=== PATIENT | male | born 1955 | race Caucasian/White ===

== ENCOUNTER 2022-05-12 14:28 | Emergency (ER) | payer BC, SELFPAY ==
[2022-05-12 14:30] VITALS: BP 126/63; PULSE 106; RESP 20; TEMP 36.6; O2SAT 93; BMI 29.9
--- NOTE | 2022-05-12 15:09 | EDS_ITS ---
HPI History of Present Illness Chief Complaint: Substance Abuse Informant: patient Narrative Narrative: Patient presents with daughter requesting admission for detox from alcohol. He has been working with 180. He states he was sober for a while but is been drink ing heavily again over the last 6 weeks. As I enter the room he is reviewing the rules for the detox program. 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 [facility] Medical History Alcohol abuse COPD (chronic obstructive pulmonary disease) History of DVT (deep vein thrombosis) Tobacco abuse Home Medications apixaban 5 mg tablet (Eliquis) 5 mg PO BID 03/17/15 [History Last Taken Unknown] bupropion HCl 300 mg 24 hr tablet, extended release 300 mg PO DAILY 03/17/15 [History Last Taken Unknown] guaifenesin 600 mg tablet, extended release 12 hr (Mucus Relief ER) 600 mg PO BID 03/17/15 [History Last Taken Unknown] hydrocodone-acetaminophen 5-325mg 5mg-325mg 1 tab PO Q6H PRN PRN Pain 03/17/15 [History Last Taken Unknown] lorazepam 0.5 mg tablet 0.5 mg PO BID PRN PRN Anxiety 03/17/15 [History Last Taken Unknown] pantoprazole 40 mg tablet,delayed release 40 mg PO DAILY 03/17/15 [History Last Taken Unknown] tiotropium bromide 18 mcg capsule with inhalation device (Spiriva with HandiHaler) 1 puff inhalation DAILY 03/17/15 [History Last Taken Unknown] Allergy/AdvReac Type Severity Reaction Status Date / Time POLYMER Allergy NEEDS Uncoded 05/12/22 14:29 FOLLOW-UP Social History Smoking Status: Current every day smoker ROS ROS ED Constitutional Constitutional ED: Denies chills or fever(s) Eyes Eyes: Denies change in vision or discharge from eye(s) ENT ENT ED: Denies discharge from eye(s), rhinorrhea or sore throat Cardiovascular Cardiovascular: Denies chest pain or palpitations Respiratory/Chest Respiratory/Chest: Denies cough or dyspnea Gastrointestinal Gastrointestinal: Denies abdominal pain, diarrhea, nausea or vomiting Genitourinary Genitourinary ED: Denies dysuria Musculoskeletal Musculoskeletal: Denies back pain or extremity pain Integumentary Denies Abrasions or rash Neurologic Neurologic: Denies headache(s) or weakness Psychiatric Psychiatric: Reports anxiety Allergic/Immunologic Allergic/Immunologic ED: Denies lip swelling or urticaria EXAM Physical Exam Narrative Exam Narrative: Patient sitting on side of bed no acute distress. Const Vital Signs: 05/12/22 14:30 Temperature 97.9 F Temperature Source Temporal Pulse Rate 106 H Respiratory Rate 20 H Blood Pressure 126/63 H Blood Pressure Mean 84 Pulse Ox 93 Oxygen Delivery Method Nasal Cannula Oxygen Flow Rate (L/min) 3 Positive well nourished and well developed General Appearance ED: well developed HEENT Reports moist mucous membranes Chest Wall inspection of chest normal and palpation of chest normal Resp normal respiratory effort and clear to auscultation bilaterally Cardio regular rate and regular rhythm GI soft to palpation and non-tender Neuro oriented x3 and no sensory deficits noted Motor Exam: strength 5/5 throughout Psych mental status grossly normal [facility] Treatment and Re-Evaluation Narrative: I spoke with the hospitalist who agreed to make an exception and allow the patient to have his cell phone if it got him the help he needed. I went back and presented this to the patient. He states that this time he just does not think he can do it and needs to go home. He feels that he can detox on his own. He was advised that he can return at any point if he changes his mind and we are happy to help him. Daughter is at bedside and present for the entire discussion. Discharge Plan Triage Chief Complaint: Substance Abuse ED Provider: Ebony Duffy Dx/Rx/DC Orders Clinical Impression: ETOH abuse Instructions: ED Alcohol Abuse Prescriptions: No Action hydrocodone-acetaminophen 1 TABLET tablet 1 tab PO Q6H PRN PRN (Reason: Pain) lorazepam 0.5 MG tablet 0.5 mg PO BID PRN PRN (Reason: Anxiety) pantoprazole 40 MG tablet 40 mg PO DAILY bupropion HCl 300 MG Tablet.Xl 300 mg PO DAILY tiotropium bromide [Spiriva with HandiHaler] 1 PUFF inhaler 1 puff inhalation DAILY apixaban [Eliquis] 5 MG tablet 5 mg PO BID guaifenesin [Mucus Relief ER] 600 MG tablet 600 mg PO BID Primary Care Provider: [facility] Doctor,Out of Referrals: [facility] [STAFF PHYSICIAN] - As soon as possible [facility] Doctor,Out of [Primary Care Provider] - Disposition Disposition: Home, Self Care
--- NOTE | 2022-05-12 15:23 | ED.RN ---
PT CHOSE NOT TO PROCEED WITH DETOX. PT LEFT AMA WITH DAUGHTER, DR. BRISCOE AWARE. LEFT WITHOUT SEEING REGISTRATION.
[2022-05-12 15:30] VITALS: RESP 20
== END 2022-05-12 15:34 | disposition home or self-care (01) ==
LOC: ED 15:26
PROVIDERS: Emergency Provider Emergency Medicine; Visit Provider Emergency Medicine
DX: F10.10 Alcohol abuse, uncomplicated (principal); J44.9 Chronic obstructive pulmonary disease, unspecified; F17.200 Nicotine dependence, unspecified, uncomplicated; Z79.01 Long term (current) use of anticoagulants; Z86.718 Personal history of other venous thrombosis and embolism
CPT/HCPCS: 99282

== ENCOUNTER 2022-05-16 10:52 | Inpatient (IN) | payer BC, SELFPAY ==
[2022-05-16] VITALS (10 sets, daily range): BP systolic 113–142; BP diastolic 61–81; PULSE 94–113; RESP 16–20; TEMP 35.8–37.1; O2SAT 92–97; BMI 29.9; BMI 30.2
--- NOTE | 2022-05-16 11:05 | EX.ED.DYSGE1 ---
HPI History of Present Illness Chief Complaint: Substance Abuse Informant: patient and family Narrative Narrative: 66-year-old male presents to the emergency department requesting alcohol detox. Patient was seen 4 days ago and at that time was uncomfortable not having his cell phone and wanted to detox himself. This is been greatly unsuccessful as he continues to drink. He states he has been drinking heavily for the past 6 weeks. He previously had been sober for over 5 years. He denies any legal issues. [facility] Medical History Alcohol abuse COPD (chronic obstructive pulmonary disease) History of DVT (deep vein thrombosis) Tobacco abuse Home Medications apixaban 5 mg tablet (Eliquis) 5 mg PO BID 03/17/15 [History Last Taken Unknown] bupropion HCl 300 mg 24 hr tablet, extended release 300 mg PO DAILY 03/17/15 [History Last Taken Unknown] guaifenesin 600 mg tablet, extended release 12 hr (Mucus Relief ER) 600 mg PO BID 03/17/15 [History Last Taken Unknown] hydrocodone-acetaminophen 5-325mg 5mg-325mg 1 tab PO Q6H PRN PRN Pain 03/17/15 [History Last Taken Unknown] lorazepam 0.5 mg tablet 0.5 mg PO BID PRN PRN Anxiety 03/17/15 [History Last Taken Unknown] pantoprazole 40 mg tablet,delayed release 40 mg PO DAILY 03/17/15 [History Last Taken Unknown] tiotropium bromide 18 mcg capsule with inhalation device (Spiriva with HandiHaler) 1 puff inhalation DAILY 03/17/15 [History Last Taken Unknown] Allergy/AdvReac Type Severity Reaction Status Date / Time POLYMER Allergy NEEDS Uncoded 05/16/22 10:53 FOLLOW-UP Social History Smoking Status: Current every day smoker tobacco type: cigarettes ROS ROS ED Constitutional Constitutional ED: Denies chills or weight loss Eyes Eyes: Denies change in vision or diplopia ENT ENT ED: Denies ear pain, rhinorrhea or sore throat Cardiovascular Cardiovascular: Denies chest pain, orthopnea, palpitations or racing heartbeat Respiratory/Chest Respiratory/Chest: Denies cough, dyspnea or orthopnea Gastrointestinal Gastrointestinal: Denies abdominal pain, diarrhea, nausea or vomiting Genitourinary Genitourinary ED: Denies dysuria, hematuria or urinary frequency Musculoskeletal Musculoskeletal: Denies arthralgias or myalgias Integumentary Denies abscess or rash Neurologic Neurologic: Denies headache(s) or weakness Psychiatric Psychiatric: Denies anxiety, depression, suicidal ideation or suicidal thoughts Endocrine Endocrinology: Denies polydipsia, polyphagia or polyuria Allergic/Immunologic Allergic/Immunologic ED: Denies mouth swelling, tongue swelling or urticaria EXAM Physical Exam Const Vital Signs: 05/16/22 10:53 05/16/22 11:09 Temperature 97.3 F L 97.3 F L Temperature Source Temporal Oral Pulse Rate 101 H 101 H Respiratory Rate 18 20 H Blood Pressure 138/81 H 138/81 H Blood Pressure Mean 100 100 Blood Pressure Source Monitor Blood Pressure Position Sitting Blood Pressure Location Left Arm Pulse Ox 93 93 Oxygen Delivery Method Nasal Cannula Nasal Cannula Oxygen Flow Rate (L/min) 2 2 Positive well nourished and well developed General Appearance ED: well developed HEENT Reports normocephalic, head/scalp atraumatic and moist mucous membranes Eyes PERRL and EOMs intact bilaterally Neck no lymphadenopathy, supple and no JVD Resp normal respiratory effort and clear to auscultation bilaterally Cardio regular rate, regular rhythm and no murmurs GI normal to inspection, nondistended, normoactive bowel sounds and non-tender Palpation: soft Back/Spine no CVA tenderness and normal ROM Extremity normal to inspection General Extremety ED: Negative for edema General Extremity: Negative for edema Neuro oriented x3 and CN's II-XII intact bilaterally Sensorium / Orientation: alert Motor Exam: strength 5/5 throughout Psych mental status grossly normal Mood & Affect: Negative for depressed or tearful Skin no rashes or lesions noted and no wounds MDM MDM MDM Narrative Medical decision making narrative: Heating addiction labs were ordered. Patient agrees to the rules of the program. I discussed the case with the hospitalist. Lab Data Attestation: I reviewed the patient's lab results. Labs: Laboratory Results - last 24 hr 05/16/22 05/16/22 05/16/22 11:18 11:18 11:18 WBC 5.2 RBC 3.84 L Hgb 13.6 Hct 39.9 L MCV 103.9 H MCH 35.4 H MCHC 34.1 RDW Std Deviation 55.8 H RDW Coeff of Tyree 14.4 Plt Count 109 L MPV 9.0 Immature Gran % (Auto) 0.200 Neut % (Auto) 56.5 Lymph % (Auto) 26.3 Wright % (Auto) 14.1 H Eos % (Auto) 2.1 Baso % (Auto) 0.8 Absolute Neuts (auto) 2.9 Absolute Lymphs (auto) 1.36 Nucleated RBC % 0 PT 12.7 INR 1.0 Sodium 139 Potassium 3.5 Chloride 99 Carbon Dioxide 33.0 H Anion Gap 7 BUN 11 Creatinine 0.72 Estim Creat Clear Calc 123.88 Est GFR (MDRD) Af Amer 140 Est GFR (MDRD) Non-Af 116 BUN/Creatinine Ratio 15.2 Glucose 107 H Calcium 9.0 Total Bilirubin 0.40 AST 65 H ALT 55 Alkaline Phosphatase 71 Total Protein 7.0 Albumin 3.5 Globulin 3.5 Albumin/Globulin Ratio 1.0 Ethyl Alcohol 05/16/22 11:18 WBC RBC Hgb Hct MCV MCH MCHC RDW Std Deviation RDW Coeff of Tyree Plt Count MPV Immature Gran % (Auto) Neut % (Auto) Lymph % (Auto) Wright % (Auto) Eos % (Auto) Baso % (Auto) Absolute Neuts (auto) Absolute Lymphs (auto) Nucleated RBC % PT INR Sodium Potassium Chloride Carbon Dioxide Anion Gap BUN Creatinine Estim Creat Clear Calc Est GFR (MDRD) Af Amer Est GFR (MDRD) Non-Af BUN/Creatinine Ratio Glucose Calcium Total Bilirubin AST ALT Alkaline Phosphatase Total Protein Albumin Globulin Albumin/Globulin Ratio Ethyl Alcohol 359.0 H* Discharge Plan Dx/Rx/DC Orders Clinical Impression: ETOH abuse Disposition Disposition: Acute Care Hospital [facility]
[2022-05-16 11:26] LABS: Absolute Lymphocyte Count 1.36 X10^3/uL (0.83-4.51); Absolute Neutrophil Count 2.9 X10^3/uL (2.0-7.7); Basophil# 0.04 X10^3/uL; Basophil% 0.8 % (0-1); Eosinophil# 0.11 X10^3/uL; Eosinophils% 2.1 % (0-5); Hematocrit 39.9 % (40-54); Hemoglobin 13.6 g/dL (13.0-16.5); Lymphocyte # 1.36 X10^3/ul (0.83-4.51); Lymphocyte % 26.3 % (19-41); Mean Corp Hgb Conc 34.1 g/dL (32-36); Mean Corpuscular Hgb 35.4 pg (27.0-32.0); Mean Corpuscular Volume 103.9 fL (80-94); Monocyte# 0.73 X10^3/uL; Monocyte% 14.1 % (0-10); NRBC Flagged by Analyzer 0 % (0-5); Neutrophil # 2.92 X10^3/uL (2.7-7.7); Neutrophil % 56.5 % (47-70); Platelet Count 109 K/mm3 (150-450); RBC Distribution Width CV 14.4 % (11.6-14.6); RBC Distribution Width SD 55.8 fl (35.1-43.9); Red Blood Count 3.84 M/mm3 (4.6-6.2); White Blood Count 5.2 K/mm3 (4.4-11.0)
[2022-05-16 11:36] LABS: Prothrombin Time (Protime)PT. 12.7 SECONDS (11.7-14.9)
[2022-05-16 11:42] LABS: AST(SGOT) 65 U/L (15-37); Alanine Aminotransfer ALT/SGPT 55 U/L (16-61); Albumin, Serum 3.5 g/dL (3.2-5.0); Alkaline Phosphatase 71 U/L (45-117); Anion Gap 7 (5-15); BUN 11 mg/dL (7-18); BUN/Creat Ratio 15.2 RATIO (10-20); Chloride 99 mmol/L (98-107); Creatinine, Serum 0.72 mg/dL (0.70-1.30); EST Glomerular Filtration Rate 116 mL/min (>60); Est Glom Filt Rate - Afr Amer 140 mL/min (>60); Estimated Creatinine Clearance 123.88 ml/min; Globulin 3.5 g/dL (2.2-4.2); Glucose 107 mg/dL (74-106); Potassium 3.5 mmol/L (3.5-5.1); Sodium Level 139 mmol/L (136-145)
[2022-05-16] MEDS: LORazepam 1 MG Tablet PO (11:45)
--- NOTE | 2022-05-16 12:36 | HP.PCM.HOS_ITS ---
HPI - General General Date of Admission: 05/16/22 HPI Narrative LIT JOHNSON, is a 66 M who presents to the hospital requesting alcohol detox. He presented on 05/12/2022 for the same thing however did not appreciate not having access to his cell phone. Today he feels like he needs to quit and is okay with giving up his cell phone. His last drink was about 4 hours ago and he does endorse some shaking [facility] Medical History Alcohol abuse COPD (chronic obstructive pulmonary disease) History of DVT (deep vein thrombosis) Tobacco abuse Home Medications apixaban 5 mg tablet (Eliquis) 5 mg PO BID 03/17/15 [History Last Taken Unknown] bupropion HCl 300 mg 24 hr tablet, extended release 300 mg PO DAILY 03/17/15 [History Last Taken Unknown] guaifenesin 600 mg tablet, extended release 12 hr (Mucus Relief ER) 600 mg PO BID 03/17/15 [History Last Taken Unknown] hydrocodone-acetaminophen 5-325mg 5mg-325mg 1 tab PO Q6H PRN PRN Pain 03/17/15 [History Last Taken Unknown] lorazepam 0.5 mg tablet 0.5 mg PO BID PRN PRN Anxiety 03/17/15 [History Last Taken Unknown] pantoprazole 40 mg tablet,delayed release 40 mg PO DAILY 03/17/15 [History Last Taken Unknown] tiotropium bromide 18 mcg capsule with inhalation device (Spiriva with Sanchez diHaler) 1 puff inhalation DAILY 03/17/15 [History Last Taken Unknown] Allergy/AdvReac Type Severity Reaction Status Date / Time POLYMER Allergy NEEDS Uncoded 05/16/22 10:53 FOLLOW-UP no significant family history Social History Smoking Status: Current every day smoker tobacco type: cigarettes ROS Constitutional Constitutional: Denies chills, fatigue, fever(s) or malaise Eyes Eyes: Denies blurry vision ENT HEENT: Denies headache(s) or nasal discharge Cardiovascular Cardiovascular: Denies chest pain, dyspnea on exertion or syncope Respiratory/Chest Respiratory/Chest: Denies cough, shortness of breath at rest or shortness of breath with exertion Gastrointestinal Gastrointestinal: Denies constipation, diarrhea, nausea or vomiting Genitourinary Genitourinary: Denies dysuria Neurologic Neurologic: Denies focal weakness, numbness or tremor(s) Psychiatric Psychiatric: Reports anxiety; Denies depression Vital Signs Vital Signs Vital Signs: 05/16/22 10:53 05/16/22 11:09 05/16/22 12:33 Temperature 97.3 F L 97.3 F L Temperature Source Temporal Oral Pulse Rate 101 H 101 H 95 Respiratory Rate 18 20 H 20 H Blood Pressure 138/81 H 138/81 H 142/75 H Blood Pressure Mean 100 100 97 Blood Pressure Source Monitor Blood Pressure Position Sitting Blood Pressure Location Left Arm Pulse Ox 93 93 94 Oxygen Delivery Method Nasal Cannula Nasal Cannula Nasal Cannula Oxygen Flow Rate (L/min) 2 2 3 05/16/22 12:33 Temperature 96.5 F L Temperature Source Temporal Pulse Rate 95 Respiratory Rate 20 H Blood Pressure 142/75 H Blood Pressure Mean 97 Blood Pressure Source Blood Pressure Position Blood Pressure Location Pulse Ox 94 Oxygen Delivery Method Nasal Cannula Oxygen Flow Rate (L/min) 3 Weight Weight: 240 lb Body Mass Index (BMI) 29.9 Physical Exam Const alert, oriented x3 and no apparent distress General Appearance: cooperative HEENT normocephalic and moist oral mucous membranes Eyes PERRL, EOMs intact bilaterally and conjunctivae normal Neck supple and no JVD Resp normal respiratory effort, no retractions, no use of accessory muscles and clear to auscultation bilaterally Auscultation: Negative for crackles, rales, rhonchi or wheezes Cardio regular rhythm, S1 normal heart sound, S2 normal heart sound and no murmurs Rate: tachycardic GI soft to palpation, non-tender and non-distended; Negative for hepatosplenomegaly Extremity no clubbing, cyanosis or edema Skin no rashes or lesions noted Neuro no focal motor deficits and no sensory deficits noted Psych affect normal Appearance: appropriate Results Lab / Micro Data Result Diagrams: 05/16/22 11:18 05/16/22 11:18 Labs: Laboratory Results - last 24 hr 05/16/22 11:18: WBC 5.2, RBC 3.84 L, Hgb 13.6, Hct 39.9 L, MCV 103.9 H, MCH 35.4 H, MCHC 34.1, RDW Std Deviation 55.8 H, RDW Coeff of Tyree 14.4, Plt Count 109 L, MPV 9.0, Immature Gran % (Auto) 0.200, Neut % (Auto) 56.5, Lymph % (Auto) 26.3, [place] % (Auto) 14.1 H, Eos % (Auto) 2.1, Baso % (Auto) 0.8, Absolute Neuts (auto) 2.9, Absolute Lymphs (auto) 1.36, Nucleated RBC % 0 05/16/22 11:18: PT 12.7, INR 1.0 05/16/22 11:18: Sodium 139, Potassium 3.5, Chloride 99, Carbon Dioxide 33.0 H, Anion Gap 7, BUN 11, Creatinine 0.72, Estim Creat Clear Calc 123.88, Est GFR (MDRD) Af Amer 140, Est GFR (MDRD) Non-Af 116, BUN/Creatinine Ratio 15.2, Glucose 107 H, Calcium 9.0, Total Bilirubin 0.40, AST 65 H, ALT 55, Alkaline Phosphatase 71, Total Protein 7.0, Albumin 3.5, Globulin 3.5, Albumin/Globulin Ratio 1.0 05/16/22 11:18: Ethyl Alcohol 359.0 H* 05/16/22 12:25: Ur Drug Screen Comment Assessment & Plan Assessment/Plan (1) ETOH abuse: PLAN: Plan 1. Acute alcohol withdrawal/anxiety and depression ? Continue with the alcohol withdrawal protocol ? Will have him follow-up with 180 on discharge ? Continue with Wellbutrin and as needed Ativan 2. History of DVT ? Stable ? Continue with Eliquis 3. GERD ? Stable ? Continue PPI 4. COPD ? Not in exacerbation ? Continue with inhalers and chronic oxygen at 2 to 3 L nasal cannula DVT: Eliquis Charges/Coding Visit Charges Inpatient E&M: 35419 Init Hosp L2
[2022-05-16 12:59] LABS: Amphetamine Urine VISTA NEGATIVE (<1000 ng/mL); Barbiturate Urine VISTA NEGATIVE (< 200 ng/mL); Benzodiazepine Urine VISTA NEGATIVE (< 200 ng/mL); Cocaine Urine VISTA NEGATIVE (< 300 ng/mL); Ecstacy Urine VISTA NEGATIVE (< 500 ng/mL); Methadone Urine VISTA NEGATIVE (< 300 ng/mL); PCP Urine VISTA NEGATIVE (< 25 ng/mL); THC Urine VISTA NEGATIVE (< 50 ng/mL); Vista UDS pH Range 5
[2022-05-16] MEDS: Phenobarbital 32.4 MG Tablet 64.8 MG PO ×3 (15:25→23:11)
--- NOTE | 2022-05-16 16:09 | CHAPLAIN ---
Type of Pastoral Visit _x__ Initial Visit ___ Follow-up Visit ___ On-call Visit ___ General Patient Visit ___ Spiritual Assessment ___ Family Conference ___ Bereavement ___ Rapid Response ___ Code Blue ___ Other (describe below) Pastoral Care Referral From _x__ Patient ___ Family ___ Nurse ___ Physician ___ Associate Dentist ___ Video Camera Operator ___ Other (describe below) Sacrament/Intervention _x__ Active listening ___ Anointing ___ Mandaeism ___ Bereavement ___ Communion ___ Carine exploration ___ _x__ Life review ___ Prayer ___ Reconciliation ___ Sacrament of Sick _x__ Supportive presence ___ Wedding ___ Other (describe below) Pastoral Comments patient is being admitted; pt invites this rag baler to come and talk with him and give me what you've got; pt reviews recent years of alternating sobriety and alcohol abuse; 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
[2022-05-16] MEDS: Gabapentin 300 MG Capsule PO (18:41)
[2022-05-16] MEDS: LORazepam 0.5 MG Tablet PO (18:41)
[2022-05-16] MEDS: hydrOXYzine PAM 25 MG Capsule 50 MG PO (20:37)
[2022-05-16] MEDS: guaiFENesin 1,200 MG Tablet 1200 MG PO (21:25)
[2022-05-16] MEDS: APIXABAN 5 MG TABLET PO (21:25)
[2022-05-16] MEDS: traZODone 100 MG Tablet PO (21:26)
[2022-05-16] MEDS: 0.9% Saline Lock 10 ML Syringe IV (21:26)
[2022-05-17] VITALS (12 sets, daily range): BP systolic 119–144; BP diastolic 66–88; PULSE 85–115; RESP 17–20; TEMP 36.7–37.3; O2SAT 92–96
[2022-05-17] MEDS: Phenobarbital 32.4 MG Tablet 64.8 MG PO ×6 (03:23→22:31)
[2022-05-17] MEDS: Gabapentin 300 MG Capsule PO ×2 (03:23→14:40)
[2022-05-17] MEDS: LORazepam 0.5 MG Tablet PO ×2 (06:37→19:02)
[2022-05-17] MEDS: APIXABAN 5 MG TABLET PO ×2 (09:41→22:33)
[2022-05-17] MEDS: guaiFENesin 1,200 MG Tablet 1200 MG PO ×2 (09:41→22:34)
[2022-05-17] MEDS: Pantoprazole Sodium 40 MG Tablet PO (09:41)
[2022-05-17] MEDS: buPROPion (XL) 300 MG TABLET.XL PO (09:41)
[2022-05-17] MEDS: Thiamine Hydrochloride 100 MG Tablet PO (09:42)
[2022-05-17] MEDS: Folic Acid 1 MG Tablet PO (09:42)
[2022-05-17] MEDS: hydrOXYzine PAM 25 MG Capsule 50 MG PO (09:43)
[2022-05-17] MEDS: Ondansetron 8 MG Tablet PO (09:43)
--- NOTE | 2022-05-17 10:26 | PN.HOSP_ITS ---
Subjective Subjective No issue overnight, today has a CIWA of 18 we will continue with the alcohol withdrawal protocol as well as his as needed Ativan. Objective Data Objective Data Vital Signs: Vital Signs Temp Pulse Resp BP Pulse Ox O2 Del Method O2 Flow Rate 98.4 F 98 20 H 120/66 93 Nasal Cannula 2 05/17/22 10:13 05/17/22 10:13 05/17/22 10:13 05/17/22 10:13 05/17/22 10:13 05/17/22 10:13 05/17/22 10:13 Oxygen Flow Rate (L/min) 2 Oxygen Delivery Method Nasal Cannula Weight: 241 lb 12.8 oz Body Mass Index (BMI) 30.2 Intake & Output: Intake and Output for Last 24 Hours 05/16/22 05/17/22 05/18/22 03:59 03:59 03:59 Intake Total 500 / 500 240 / 240 Balance 500 / 500 240 / 240 Lab / Micro Data Result Diagrams: 05/16/22 11:18 05/16/22 11:18 Labs: Laboratory Results - last 24 hr 05/16/22 11:18: WBC 5.2, RBC 3.84 L, Hgb 13.6, Hct 39.9 L, MCV 103.9 H, MCH 35.4 H, MCHC 34.1, RDW Std Deviation 55.8 H, RDW Coeff of Tyree 14.4, Plt Count 109 L, MPV 9.0, Immature Gran % (Auto) 0.200, Neut % (Auto) 56.5, Lymph % (Auto) 26.3, [place] % (Auto) 14.1 H, Eos % (Auto) 2.1, Baso % (Auto) 0.8, Absolute Neuts (auto) 2.9, Absolute Lymphs (auto) 1.36, Nucleated RBC % 0 05/16/22 11:18: PT 12.7, INR 1.0 05/16/22 11:18: Sodium 139, Potassium 3.5, Chloride 99, Carbon Dioxide 33.0 H, Anion Gap 7, BUN 11, Creatinine 0.72, Estim Creat Clear Calc 123.88, Est GFR (MDRD) Af Amer 140, Est GFR (MDRD) Non-Af 116, BUN/Creatinine Ratio 15.2, Glucose 107 H, Calcium 9.0, Total Bilirubin 0.40, AST 65 H, ALT 55, Alkaline Phosphatase 71, Total Protein 7.0, Albumin 3.5, Globulin 3.5, Albumin/Globulin Ratio 1.0 05/16/22 11:18: Ethyl Alcohol 359.0 H* 05/16/22 12:25: Urine Opiates Screen NEGATIVE, Urine Methadone Screen NEGATIVE, Ur Barbiturates Screen NEGATIVE, Ur Phencyclidine Scrn NEGATIVE, Ur Amphetamines Screen NEGATIVE, MDMA (Ecstasy) Screen NEGATIVE, U Benzodiazepines Scrn NEGATIVE , Urine Cocaine Screen NEGATIVE, U Cannabinoids Screen NEGATIVE, Ur Drug Screen Comment Physical Exam Narrative Const alert, oriented x3 and no apparent distress General Appearance: cooperative HEENT normocephalic and moist oral mucous membranes Eyes PERRL, EOMs intact bilaterally and conjunctivae normal Neck supple and no JVD Resp normal respiratory effort, no retractions, no use of accessory muscles and clear to auscultation bilaterally Auscultation: Negative for crackles, rales, rhonchi or wheezes Cardio regular rhythm, S1 normal heart sound, S2 normal heart sound and no murmurs Rate: tachycardic GI soft to palpation, non-tender and non-distended; Negative for hepatosplenomegaly Extremity no clubbing, cyanosis or edema Skin no rashes or lesions noted Neuro no focal motor deficits and no sensory deficits noted Psych Anxious with tremors Appearance: appropriate Assessment & Plan Assessment/Plan (1) ETOH abuse: PLAN: Plan 1. Acute alcohol withdrawal/anxiety and depression ? Continue with the alcohol withdrawal protocol ? Will have him follow-up with 180 on discharge ? Continue with Wellbutrin and as needed Ativan ? WA was of 18 we will continue to monitor for worsening withdrawal symptoms 2. History of DVT ? Stable ? Continue with Eliquis 3. GERD ? Stable ? Continue PPI 4. COPD ? Not in exacerbation ? Continue with inhalers and chronic oxygen at 2 to 3 L nasal cannula DVT: Eliquis Charges/Coding Visit Charges Inpatient E&M: 13617 Subs Hosp L2
--- NOTE | 2022-05-17 11:54 | ADDICTION ---
This curriculum writer met with PT to conduct ASAM, MSE, AUDIT assessments and to plan for d/c. PT A+Ox4 and participated actively. All assessments completed and placed in PT's chart. PT plans to f/u with individual counselor at [facility] for follow-up teatment services. PT did not indicate a need for transportation post d/c from [facility].
[2022-05-17] MEDS: Ipratropium/Albuterol Sulfate 3 ML AMPUL.NEB INHALATION ×2 (13:55→19:50)
--- NOTE | 2022-05-17 15:09 | CHAPLAIN ---
Type of Pastoral Visit ___ Initial Visit _x__ Follow-up Visit ___ On-call Visit ___ General Patient Visit ___ Spiritual Assessment ___ Family Conference ___ Bereavement ___ Rapid Response ___ Code Blue ___ Other (describe below) Pastoral Care Referral From _x__ Patient ___ Family ___ Nurse ___ Physician ___ Octave Board Assembler ___ Toe Former ___ Other (describe below) Sacrament/Intervention _x__ Active listening ___ Anointing ___ Oriental Orthodox ___ Bereavement ___ Communion ___ Carine exploration ___ ___ Life review _x__ Prayer ___ Reconciliation ___ Sacrament of Sick _x__ Supportive presence ___ Wedding ___ Other (describe below) Pastoral Comments follow up visit as requested by this patient; pt is shaky but is able to speak and describe his situation and verbally process his thoughts about interventions and future; pt is quite verbal; pt speaks of goals, one is to read the Bible more for daily inspiration; pt welcomes presence and prayer for support; affirming pt on what he is doing here and his hopes of returning to sobriety
[2022-05-18] VITALS (8 sets, daily range): BP systolic 109–136; BP diastolic 56–82; PULSE 82–102; RESP 16–18; TEMP 36.7–36.8; O2SAT 91–95
[2022-05-18] MEDS: Nystatin Powder 15gm Bottle 1 APPLIC TOPICAL ×3 (03:19→22:07)
[2022-05-18] MEDS: Phenobarbital 32.4 MG Tablet 64.8 MG PO ×6 (03:19→22:07)
[2022-05-18] MEDS: Menthol/Lanolin/Calamine/Znox 113 GM Tube 1 APPLIC TOPICAL ×3 (03:20→22:06)
[2022-05-18] MEDS: Ipratropium/Albuterol Sulfate 3 ML AMPUL.NEB INHALATION ×3 (07:12→19:31)
[2022-05-18] MEDS: Thiamine Hydrochloride 100 MG Tablet PO (10:21)
[2022-05-18] MEDS: Pantoprazole Sodium 40 MG Tablet PO (10:21)
[2022-05-18] MEDS: APIXABAN 5 MG TABLET PO ×2 (10:21→22:07)
[2022-05-18] MEDS: guaiFENesin 1,200 MG Tablet 1200 MG PO ×2 (10:21→22:07)
[2022-05-18] MEDS: Folic Acid 1 MG Tablet PO (10:21)
[2022-05-18] MEDS: LORazepam 0.5 MG Tablet PO (10:24)
--- NOTE | 2022-05-18 10:44 | PCM.PN.HOSP ---
Subjective Subjective Doing a little better today, CIWA score of 2 Objective Data Objective Data Vital Signs: Vital Signs Temp Pulse Resp BP Pulse Ox O2 Del Method O2 Flow Rate 98.2 F 82 18 114/56 L 95 Nasal Cannula 3 05/18/22 10:09 05/18/22 10:09 05/18/22 10:09 05/18/22 10:09 05/18/22 10:09 05/18/22 10:30 05/18/22 06:00 Oxygen Flow Rate (L/min) 3 Oxygen Delivery Method Nasal Cannula Weight: 241 lb 12.8 oz Body Mass Index (BMI) 30.2 Intake & Output: Intake and Output for Last 24 Hours 05/17/22 05/18/22 05/19/22 03:59 03:59 03:59 Intake Total 500 / 500 840 / 840 Balance 500 / 500 840 / 840 Lab / Micro Data Result Diagrams: 05/16/22 11:18 05/16/22 11:18 Physical Exam Narrative Const alert, oriented x3 and no apparent distress General Appearance: cooperative HEENT normocephalic and moist oral mucous membranes Eyes PERRL, EOMs intact bilaterally and conjunctivae normal Neck supple and no JVD Resp normal respiratory effort, no retractions, no use of accessory muscles and clear to auscultation bilaterally Auscultation: Negative for crackles, rales, rhonchi or wheezes Cardio regular rhythm, S1 normal heart sound, S2 normal heart sound and no murmurs Rate: tachycardic GI soft to palpation, non-tender and non-distended; Negative for hepatosplenomegaly Extremity no clubbing, cyanosis or edema Skin no rashes or lesions noted Neuro no focal motor deficits and no sensory deficits noted Psych Affect normal Appearance: appropriate Assessment & Plan Assessment/Plan (1) ETOH abuse: PLAN: Plan 1. Acute alcohol withdrawal/anxiety and depression ? Continue with the alcohol withdrawal protocol ? Will have him follow-up with 180 on discharge ? Continue with Wellbutrin and as needed Ativan ? CIWA score of 2 we will continue to monitor for worsening withdrawal symptoms 2. History of DVT ? Stable ? Continue with Eliquis 3. GERD ? Stable ? Continue PPI 4. COPD ? Not in exacerbation ? Continue with inhalers and chronic oxygen at 2 to 3 L nasal cannula DVT: Eliquis Charges/Coding Visit Charges Inpatient E&M: 10749 Subs Hosp L2
--- NOTE | 2022-05-18 12:24 | CASEMGMT ---
EDDIE HANKINS NOTE: Informed that pt states he has home O2. EDDIE HANKINS to room. Introduced self and role of EDDIE HANKINS. Pt states he has an old concentrator from [employer] and he did not transfer to a different DME company when [employer] went out of business. He states he was getting ready to buy another concentrator [id number]. He also has an [employer] portable concentrator @ home that he pd for [id number]. He states he uses 2-3 lpm as needed. He does not wear a PAP. He has a pulse ox. He has seen a [employer] in [place]. Pt made aware he will be tested on RA @ rest and w/exertion prior to discharge and was made aware, if he qualifies for home O2, a script can be sent to a DME company of his choice for it to be billed through his insurance. He voices understanding and is agreeable. He was provided w/list of local DME companies and his preferred provider is [employer]. He denies having any further other home-going/discharge needs. Pt made aware EDDIE HANKINS will be available for any further home-going needs that may arise. He voices understanding. Yusuf READ RN, CM
[2022-05-18] MEDS: hydrOXYzine PAM 25 MG Capsule 50 MG PO (16:15)
[2022-05-18] MEDS: Senna Tablet 2 TABLET PO (22:09)
[2022-05-19 02:15] VITALS: BP 119/69; PULSE 83; RESP 16; TEMP 36.9; O2SAT 93
[2022-05-19] MEDS: Phenobarbital 32.4 MG Tablet 64.8 MG PO ×2 (04:48→10:59)
[2022-05-19 08:15] VITALS: BP 121/69; PULSE 88; RESP 19; TEMP 36.9; O2SAT 91
--- NOTE | 2022-05-19 08:56 | DCINST_ITS ---
Discharge Instructions Diet Discharge Diet: No restrictions Activity Discharge Activity: Return to Normal Activity Dressing / Incision Call your doctor if you observe: Fever of 101 or Higher, Shortness of breath, Dizziness, Fainting spells, Swelling in the ankles, Chest pain and Increased palpitations (irregular heartbeat) Follow Up Care Test Results: Test results from this visit will be discussed in further detail at your follow- up appointment, if applicable. Discharge Plan Admission Admit Date/Time: 05/16/22 12:13 Attending Provider: Du Gambino Primary Care Provider: Jacklyn Rinaldi Discharge Orders/Prescriptions Prescriptions: Continued lorazepam 0.5 MG tablet 0.5 mg PO BID PRN PRN (Reason: Anxiety) bupropion HCl 300 MG tablet extended release 24 hr 300 mg PO DAILY Spiriva with HandiHaler 1 PUFF inhaler 1 puff inhalation DAILY Eliquis 5 MG tablet 5 mg PO BID guaifenesin [Mucus Relief ER] 600 MG tablet 1,200 mg PO BID albuterol sulfate 90 mcg/actuation HFA aerosol inhaler 2 inh INHALATION Q4H PRN PRN (Reason: sob) Label Comments: INHALE 2 PUFFS INSTRUCTED EVERY 4 HOURS NEEDED FOR WHEEZING/SHORTNESS OF BREATH. Referrals / Follow Up: Jacklyn Rinaldi MD [Primary Care Provider] - [facility] [address] Doctor,Out of [NON-STAFF] - Disposition Disposition (needs filled in before D/C Order can be placed): Home, Self Care
--- NOTE | 2022-05-19 09:02 | DS.PCM_ITS ---
Providers Date of Admission: 05/16/22 Primary Care Physician: Dr. Jacklyn Rinaldi MD Reason For Visit: ALCOHOL DETOX Diagnosis Discharge Diagnosis (1) ETOH abuse: Status: Acute Code(s): F10.10 - Alcohol abuse, uncomplicated Plan 1. Acute alcohol withdrawal/anxiety and depression ? Continue with the alcohol withdrawal protocol ? Will have him follow-up with 180 on discharge ? Continue with Wellbutrin and as needed Ativan ? CIWA score of 2 we will continue to monitor for worsening withdrawal symptoms 2. History of DVT ? Stable ? Continue with Eliquis 3. GERD ? Stable ? Continue PPI 4. COPD ? Not in exacerbation ? Continue with inhalers and chronic oxygen at 2 to 3 L nasal cannula DVT: Eliquis Medications at Discharge Home Medications apixaban 5 mg tablet (Eliquis) 5 mg PO BID blood thinner 03/17/15 bupropion HCl 300 mg 24 hr tablet, extended release 300 mg PO DAILY mood 03/17/15 guaifenesin 600 mg tablet, extended release 12 hr (Mucus Relief ER) 1,200 mg PO BID copd 03/17/15 lorazepam 0.5 mg tablet 0.5 mg PO BID PRN PRN Anxiety 03/17/15 tiotropium bromide 18 mcg capsule with inhalation device (Spiriva with HandiHaler) 1 puff inhalation DAILY sob 03/17/15 albuterol sulfate 90 mcg/actuation aerosol inhaler 2 inh inhalation Q4H PRN PRN sob 05/16/22 Hospital Course Operations None Procedures None Summary of Care Provided Minutes Spent on Discharge: 37 Hospital Course: Per HPI: LIT JOHNSON, is a 66 M who presents to the hospital requesting alcohol detox.? He presented on 05/12/2022 for the same thing however did not appreciate not having access to his cell phone.? Today he feels like he needs to quit and is okay with giving up his cell phone.? His last drink was about 4 hours ago and he does endorse some shaking Hospital Course: 1.? Acute alcohol withdrawal/anxiety and depression ? Continue with the alcohol withdrawal protocol ? Will have him follow-up with 180 on discharge ? Continue with Wellbutrin and as needed Ativan ? CIWA scores of 0, he does have counselor set up at 180. I discussed with him the plan for discharge today he expressed understanding Shannon of is going home and wants to go home today. 2.? History of DVT ? Stable ? Continue with Eliquis 3.? GERD ? Stable ? Continue PPI 4.? COPD ? Not in exacerbation ? Continue with inhalers and chronic oxygen at 2 to 3 L nasal cannula ? We will retest his oxygen requirements today prior to discharge Physical Exam Narrative Const alert, oriented x3 and no apparent distress General Appearance: cooperative HEENT normocephalic and moist oral mucous membranes Eyes PERRL, EOMs intact bilaterally and conjunctivae normal Neck supple and no JVD Resp normal respiratory effort, no retractions, no use of accessory muscles and clear to auscultation bilaterally Auscultation: Negative for crackles, rales, rhonchi or wheezes Cardio regular rate and rhythm, S1 normal heart sound, S2 normal heart sound and no murmurs GI soft to palpation, non-tender and non-distended; Negative for hepatosplenomegaly Extremity no clubbing, cyanosis or edema Skin no rashes or lesions noted Neuro no focal motor deficits and no sensory deficits noted Psych affect normal Appearance: appropriate Weight / BMI Weight Weight: 241 lb 12.8 oz Body Mass Index (BMI) 30.2 ABG / Lab / Microbiology Data Result Diagrams: 05/16/22 11:18 05/16/22 11:18 D/C Instructions Discharge Diet: No restrictions Call your doctor if you observe: Fever of 101 or Higher, Shortness of breath, Dizziness, Fainting spells, Swelling in the ankles, Chest pain and Increased palpitations (irregular heartbeat) Meaningful Use Info Meaningful Use Diagnoses (Choose all that apply): None applicable Discharge Plan Admission Admit Date/Time: 05/16/22 12:13 Attending Provider: Du Gambino Primary Care Provider: Jacklyn Rinaldi Discharge Orders/Prescriptions Prescriptions: Continued lorazepam 0.5 MG tablet 0.5 mg PO BID PRN PRN (Reason: Anxiety) bupropion HCl 300 MG tablet extended release 24 hr 300 mg PO DAILY Spiriva with HandiHaler 1 PUFF inhaler 1 puff inhalation DAILY Eliquis 5 MG tablet 5 mg PO BID guaifenesin [Mucus Relief ER] 600 MG tablet 1,200 mg PO BID albuterol sulfate 90 mcg/actuation HFA aerosol inhaler 2 inh INHALATION Q4H PRN PRN (Reason: sob) Label Comments: INHALE 2 PUFFS INSTRUCTED EVERY 4 HOURS NEEDED FOR WHEEZING/SHORTNESS OF BREATH. Referrals / Follow Up: Jacklyn Rinaldi MD [Primary Care Provider] - [facility] Doctor,Out of [NON-STAFF] - Disposition Disposition (needs filled in before D/C Order can be placed): Home, Self Care Charges/Coding Visit Charges Inpatient E&M: 28222 Disch Hosp
[2022-05-19] MEDS: APIXABAN 5 MG TABLET PO (09:13)
[2022-05-19] MEDS: Pantoprazole Sodium 40 MG Tablet PO (09:13)
[2022-05-19] MEDS: Folic Acid 1 MG Tablet PO (09:13)
[2022-05-19] MEDS: Senna Tablet 2 TABLET PO (09:13)
[2022-05-19] MEDS: guaiFENesin 1,200 MG Tablet 1200 MG PO (09:13)
[2022-05-19] MEDS: Thiamine Hydrochloride 100 MG Tablet PO (09:14)
[2022-05-19] MEDS: Menthol/Lanolin/Calamine/Znox 113 GM Tube 1 APPLIC TOPICAL (09:14)
[2022-05-19] MEDS: Nystatin Powder 15gm Bottle 1 APPLIC TOPICAL (09:14)
[2022-05-19 09:19] VITALS: O2SAT 0; O2SAT 2; O2SAT 3; O2SAT 4
--- NOTE | 2022-05-19 10:13 | CASEMGMT ---
EDDIE HANKINS NOTE: Home O2 testing has been completed. Pt qualifies for O2 @ 3 l/m w/exertion. Script obtained and faxed to [facility]. Portable O2 tank given to pt from [facility] supply. Call to Juan Antonio @ [employer] and he was notified of same. Yusuf READ RN CM
[2022-05-19 10:27] VITALS: O2SAT 93
[2022-05-19 10:41] VITALS: BP 121/69; PULSE 88; RESP 19; TEMP 36.9; O2SAT 91
== END 2022-05-19 12:00 | disposition home or self-care (01) | DRG 897 ==
LOC: ED 11:47 → MS3 12:53
PROVIDERS: Admitting Provider Family Medicine; Emergency Provider Emergency Medicine; PCP Family Medicine; Visit Provider Family Medicine
DX: F10.139 Alcohol abuse with withdrawal, unspecified (principal); F17.210 Nicotine dependence, cigarettes, uncomplicated; Z99.81 Dependence on supplemental oxygen; J44.9 Chronic obstructive pulmonary disease, unspecified; K21.9 Gastro-esophageal reflux disease without esophagitis; F41.9 Anxiety disorder, unspecified; Y90.8 Blood alcohol level of 240 mg/100 ml or more; F32.A Depression, unspecified; Z79.01 Long term (current) use of anticoagulants; Z79.899 Other long term (current) drug therapy; Z86.718 Personal history of other venous thrombosis and embolism
CPT/HCPCS: 80053; 80307; 82077; 85025; 85610; 94640; 99284; 99406; A4216

== ENCOUNTER 2022-08-31 22:52 | Emergency (ER) | payer MEDICARE, BC, SELFPAY ==
--- NOTE | 2022-08-31 00:35 | RAD_ITS ---
STUDY: X-RAY - ACUTE ABDOMINAL SERIES REASON FOR EXAM: Male, 67 years old patient with constipation. TECHNIQUE: Single view of the chest. Supine, and erect view(s) of the abdomen were obtained. COMPARISON: Chest radiograph dated 09/22/2014. FINDINGS: The lungs are clear and hyperexpanded. Normal size heart. Normal mediastinum and pipo. There is prominence of the pulmonary hilar arteries without peripheral pulmonary vascular congestion, suggesting pulmonary hypertension. There is atherosclerotic calcification of the aortic arch with tortuosity. There is a non-specific bowel gas pattern. The soft tissue structures of the abdomen and pelvis are unremarkable. Normal visualized osseous structures. There are degenerative osteoarthritic changes of the bilateral hips. RAD/Acute Abdomen Inc Chest IMPRESSION: 1. No evidence for acute cardiopulmonary disease. 2. Nonspecific bowel gas pattern. Moderate amount of stool is visible in the rectum. Electronically Signed: Latoya Alcaraz MD at 1:31 EDT ,
[2022-08-31 22:52] VITALS: BP 104/90; PULSE 103; RESP 18; TEMP 36.7; O2SAT 95; BMI 26.9
--- NOTE | 2022-08-31 23:19 | RAD_ITS ---
STUDY: X-RAY - LUMBAR SPINE REASON FOR EXAM: Male, 67 years old patient with low back pain after fall. TECHNIQUE: 5 view(s) of the lumbar spine were obtained. COMPARISON: None FINDINGS: Normal lumbar lordosis. There is no substantial scoliosis. There is a normal alignment of the vertebrae. Normal vertebral bodies and endplates. There is multi-level degenerative disc disease with multi-level disc space narrowing. There is no demonstrated fracture. There is multilevel degenerative arthropathy of the facet joints. There is atherosclerotic calcification of the abdominal aorta without a demonstrated aneurysm. RAD/L/S Spine Min 4 Views IMPRESSION: 1. No radiographic evidence of acute compression or displaced fracture. 2. Multilevel degenerative changes of the lumbar spine. Electronically Signed: Latoya Alcaraz MD at 1:41 EDT ,
--- NOTE | 2022-08-31 23:32 | EX.ED.DYSGE1 ---
HPI History of Present Illness Chief Complaint: Abd Pain Narrative Narrative: Patient is a 67-year-old male with past medical history of COPD on 3 L of nasal cannula oxygen. He also has a history of alcohol abuse and drinks daily. He states for the past 5 days he has not had a bowel movement and he also states during the same amount of time he is hardly been able to urinate. He does report a past surgical history of Whipple procedure but otherwise denies any other abdominal surgeries. Patient denies any nausea or vomiting associated with this. He states as his been multiple days without any symptom improvement he presents for evaluation [facility] Medical History Alcohol abuse COPD (chronic obstructive pulmonary disease) ETOH abuse History of DVT (deep vein thrombosis) Tobacco abuse Home Medications apixaban 5 mg tablet (Eliquis) 5 mg PO BID blood thinner 03/17/15 [History Last Taken 05/15/22] bupropion HCl 300 mg 24 hr tablet, extended release 300 mg PO DAILY mood 03/17/15 [History Last Taken 05/15/22] guaifenesin 600 mg tablet, extended release 12 hr (Mucus Relief ER) 1,200 mg PO BID copd 03/17/15 [History Last Taken 05/15/22] lorazepam 0.5 mg tablet 0.5 mg PO BID PRN PRN Anxiety 03/17/15 [History Last Taken Unknown] tiotropium bromide 18 mcg capsule with inhalation device (Spiriva with HandiHaler) 1 puff inhalation DAILY sob 03/17/15 [History Last Taken 05/15/22] albuterol sulfate 90 mcg/actuation aerosol inhaler 2 inh inhalation Q4H PRN PRN sob 05/16/22 [History Last Taken Unknown] docusate sodium 100 mg capsule (Colace) 100 mg PO BID 7 days #14 caps 09/01/22 [Rx Last Taken Unknown] peg 3350-electrolytes 236 gram-22.74 gram-6.74 gram-5.86 gram solution (Golytely) 240 ml PO Q10M PRN #4,000 mL 09/01/22 [Rx Last Taken Unknown] Allergy/AdvReac Type Severity Reaction Status Date / Time POLYMER Allergy NEEDS Uncoded 08/31/22 22:54 FOLLOW-UP Social History Smoking Status: Current every day smoker tobacco type: cigarettes ROS ROS ED Constitutional Constitutional ED: Denies chills or fever(s) ENT ENT ED: Denies sore throat Cardiovascular Cardiovascular: Denies chest pain Respiratory/Chest Respiratory/Chest: Reports cough, dyspnea and other Details: Patient reports this is chronic in nature secondary to his COPD Gastrointestinal Gastrointestinal: Reports abdominal pain and constipation; Denies diarrhea, nausea or vomiting Genitourinary Genitourinary ED: Reports other Details: Positive anuria ; Denies dysuria Musculoskeletal Musculoskeletal: Reports back pain Integumentary Reports Abrasions Neurologic Neurologic: Denies headache(s) Hematologic/Lymphatic Hematologic/Lymphatic: Reports easy bleeding and easy bruising EXAM Physical Exam Const Vital Signs: 08/31/22 22:52 09/01/22 01:56 09/01/22 03:12 Temperature 98.0 F Temperature Source Temporal Pulse Rate 103 H 88 102 H Respiratory Rate 18 16 18 Blood Pressure 104/90 H 143/75 H Blood Pressure Mean 94 Pulse Ox 95 95 97 Oxygen Delivery Method Nasal Cannula Nasal Cannula Oxygen Flow Rate (L/min) 3 3 Positive well nourished and well developed General Appearance ED: well developed HEENT Reports dry mucous membranes Mouth ED: Yes dry mucous membranes Mouth: dry mucous membranes Eyes PERRL and EOMs intact bilaterally Neck supple Chest Wall palpation of chest normal Resp normal respiratory effort Resp Narrative: Breath sounds are diminished throughout with diffuse inspiratory and expiratory wheezes and rhonchi in the bases consistent with history of COPD but no signs of acute distress Cardio regular rate and regular rhythm Rate: other Other Details: Radial pulses are plus 2 out of 4 bilaterally are equal and symmetric GI GI Narrative: Patient has organomegaly/firmness in the lower mid abdomen/suprapubic region consistent with a distended bladder. There is pain on palpation at the site. He has a reducible umbilical hernia present as well. Otherwise there is no voluntary guarding or rigidity no pulsatile mass or fluid wave and other than the organomegaly the remainder of the abdomen is soft and nondistended. Auscultation: hypoactive bowel sounds Narrative: Rectal tone is normal there is a moderate amount of stool in the rectal vault it is soft in nature and brown in color Back/Spine Back/Spine Narrative: No bony deformity or step-off of the thoracic or lumbar spine but there is mild lumbar pain with palpation Extremity normal to inspection Neuro oriented x3 and CN's II-XII intact bilaterally Sensorium / Orientation: alert Psych Psych Narrative: Patient has a flat affect Skin no rashes or lesions noted MDM MDM MDM Narrative Medical decision making narrative: Patient presented to the ER afebrile. On exam he had a distended bladder consistent with report he has not been urinating for the last few days. A Genao catheter was placed and approximately 1500 mL of urine was drained. The urine had no sign of infection on laboratory testing and after drainage of the bladder he had improvement of his abdominal pain and no further organomegaly noted on exam. Because the patient reported constipation as well as a recent fall x-rays were ordered. X-ray of the lumbar spine revealed no acute bony pathology and the abdomen showed stool in the vault consistent with constipation but no signs of perforation or obstruction. I performed a rectal exam and attempted to perform a disimpaction but the stool is soft and cannot be pulled out manually. The patient was given an enema and despite trying multiple times could not get complete resolution of his constipation/fecal impaction. We discussed performing repeat rectal exam/disimpaction technique to see if this would help with symptoms. Patient states he does not want that performed at this time and therefore we prescribed GoLytely and Colace to see if this will help resolve the constipation at home. Because of his alcohol abuse we did discuss possible admission to the hospital for detox but patient also declined that at this time Lab Data Attestation: I reviewed the patient's lab results. Labs: Laboratory Results - last 24 hr 08/31/22 08/31/22 08/31/22 23:30 23:30 23:50 WBC 11.5 H RBC 3.95 L Hgb 13.6 Hct 40.2 MCV 101.8 H MCH 34.4 H MCHC 33.8 RDW Std Deviation 53.0 H RDW Coeff of Tyree 13.9 Plt Count 92 L MPV 9.3 Immature Gran % (Auto) 0.400 Neut % (Auto) 78.8 H Lymph % (Auto) 14.9 L Crowley % (Auto) 5.4 Eos % (Auto) 0.3 Baso % (Auto) 0.2 Absolute Neuts (auto) 9.1 H Absolute Lymphs (auto) 1.71 Nucleated RBC % 0 Platelet Estimate MOD DEC Sodium 137 Potassium 4.1 Chloride 97 L Carbon Dioxide 32.0 Anion Gap 8 BUN 20 H Creatinine 0.64 L Estim Creat Clear Calc 133.79 Est GFR (MDRD) Af Amer 162 Est GFR (MDRD) Non-Af 134 BUN/Creatinine Ratio 31.3 H Glucose 102 Calcium 8.2 L Urine Color Yellow Urine Clarity Clear Urine pH 6.0 Ur Specific Harrison 1.020 Urine Protein 15 H Urine Glucose (UA) Normal Urine Ketones Negative Urine Occult Blood Negative Urine Nitrite Negative Urine Bilirubin Negative Urine Urobilinogen 1 H Ur Leukocyte Esterase Negative Urine RBC 0 SEEN Urine WBC 0 SEEN Ur Squamous Epith Cells 0 SEEN Urine Bacteria RARE Urine Mucus 0 SEEN Radiography Diagnostic Testing: Clinical Impression(s) from Imaging Studies Acute Abdomen Series 08/31/22 00:35 IMPRESSION: 1. No evidence for acute cardiopulmonary disease. 2. Nonspecific bowel gas pattern. Moderate amount of stool is visible in the rectum. Electronically Signed: Latoya Alcaraz MD at 1:31 EDT , Lumbar Spine X-Ray 08/31/22 23:19 IMPRESSION: 1. No radiographic evidence of acute compression or displaced fracture. 2. Multilevel degenerative changes of the lumbar spine. Electronically Signed: Latoya Alcaraz MD at 1:41 EDT , X-ray of the lumbar spine as interpreted by the emergency medicine physician reveals no acute fracture or spondylolisthesis Acute abdominal series x-ray with 1 view chest as interpreted by the emergency medicine physician reveals a nonspecific bowel gas pattern without perforation or obstruction but there is stool noted in the rectal vault consistent with constipation Discharge Plan Triage Chief Complaint: Abd Pain ED Provider: Lew Garcia Dx/Rx/DC Orders Clinical Impression: Acute urinary retention, Acute constipation, Alcohol dependence, COPD (chronic obstructive pulmonary disease), Lumbar contusion Instructions: Genao Catheter Male , ED Constipation (Adult), ED Urinary Retention, Male Prescriptions: New docusate sodium [Colace] 100 mg capsule 100 mg PO BID 7 Days Qty: 14 0RF peg 3350-electrolytes [Golytely] 236-22.74-6.74 -5.86 gram recon soln 240 ml PO Q10M PRN Qty: 4000 0RF Rx Instructions: until fecal effluent is clear No Action lorazepam 0.5 MG tablet 0.5 mg PO BID PRN PRN (Reason: Anxiety) bupropion HCl 300 MG tablet extended release 24 hr 300 mg PO DAILY Spiriva with HandiHaler 1 PUFF inhaler 1 puff inhalation DAILY Eliquis 5 MG tablet 5 mg PO BID guaifenesin [Mucus Relief ER] 600 MG tablet 1,200 mg PO BID albuterol sulfate 90 mcg/actuation HFA aerosol inhaler 2 inh INHALATION Q4H PRN PRN (Reason: sob) Label Comments: INHALE 2 PUFFS INSTRUCTED EVERY 4 HOURS NEEDED FOR WHEEZING/SHORTNESS OF BREATH. Primary Care Provider: Jacklyn Rinaldi Referrals: Jacklyn Rinaldi MD [Primary Care Provider] - Kenneth Krian MD [Med Staff - Active Staff] - Activity Restrictions/Additional Instructions: Please follow-up with urology secondary to the acute urinary retention on today's exam. Use the GoLytely to help with bowel movement and then you may transition to the Colace for the next few days to help prevent recurrent constipation. Please return to the ER should you have any further concerns Disposition Disposition: Home, Self Care Discharge Date/Time: 09/01/22 03:39
[2022-08-31 23:46] LABS: Absolute Lymphocyte Count 1.71 X10^3/uL (0.83-4.51); Absolute Neutrophil Count 9.1 X10^3/uL (2.0-7.7); Basophil# 0.02 X10^3/uL; Basophil% 0.2 % (0-1); Eosinophil# 0.03 X10^3/uL; Eosinophils% 0.3 % (0-5); Hematocrit 40.2 % (40-54); Hemoglobin 13.6 g/dL (13.0-16.5); Lymphocyte # 1.71 X10^3/ul (0.83-4.51); Lymphocyte % 14.9 % (19-41); Mean Corp Hgb Conc 33.8 g/dL (32-36); Mean Corpuscular Hgb 34.4 pg (27.0-32.0); Mean Corpuscular Volume 101.8 fL (80-94); Mean Platelet Vol. 9.3 fl (6.2-12.0); Monocyte# 0.62 X10^3/uL; Monocyte% 5.4 % (0-10); NRBC Flagged by Analyzer 0 % (0-5); Neutrophil # 9.05 X10^3/uL (2.7-7.7); Neutrophil % 78.8 % (47-70); POSITIVE COUNT YES; Platelet Count 92 K/mm3 (150-450); RBC Distribution Width CV 13.9 % (11.6-14.6); Red Blood Count 3.95 M/mm3 (4.6-6.2); White Blood Count 11.5 K/mm3 (4.4-11.0)
[2022-08-31 23:49] LABS: Differential Indicated SCAN CRITERIA MET; Platelet Estimate MOD DEC (ADEQ)
[2022-09-01] LABS: Mucous, Urine 0 SEEN /hpf (<or=2+); Red Blood Cells-Urine 0 SEEN /hpf (0-5); Squamous Epithelial Cells - UA 0 SEEN /hpf (0-5); White Blood Cells 0 SEEN /hpf (0-5)
[2022-09-01] MEDS: Lidocaine Jelly 2% 20 ML Syringe (URO-JET) 1 APPLIC TOPICAL (00:02)
[2022-09-01 00:03] LABS: Color, Urine Yellow (Yellow); Glucose, Dipstick Normal (Normal); Ketone-Dipstick Negative (Negative); Leukocyte Esterase-Dipstick Negative /ul (Negative); Nitrite-Dipstick Negative (Negative); Occult Blood-Urine Negative /ul (Negative); Protein-Dipstick 15 mg/dl (Negative); Urine Bilirubin Dipstick Negative (Negative); Urine Clarity Clear (Clear); Urine Urobilinogen 1 mg/dl (Normal)
[2022-09-01 00:07] LABS: Anion Gap 8 (5-15); BUN 20 mg/dL (7-18); BUN/Creat Ratio 31.3 RATIO (10-20); Calcium,Total 8.2 mg/dL (8.5-10.1); Chloride 97 mmol/L (98-107); Creatinine, Serum 0.64 mg/dL (0.70-1.30); EST Glomerular Filtration Rate 134 mL/min (>60); Est Glom Filt Rate - Afr Amer 162 mL/min (>60); Estimated Creatinine Clearance 133.79 ml/min; Glucose 102 mg/dL (74-106); Potassium 4.1 mmol/L (3.5-5.1); Sodium Level 137 mmol/L (136-145)
[2022-09-01 00:13] LABS: Bacteria RARE /hpf (None Seen)
[2022-09-01 01:56] VITALS: PULSE 88; RESP 16; O2SAT 95
[2022-09-01 03:12] VITALS: BP 143/75; PULSE 102; RESP 18; O2SAT 97
[2022-09-01] MEDS: LORazepam 2 MG/ML Syringe IV (03:15)
== END 2022-09-01 03:39 | disposition home or self-care (01) ==
PROVIDERS: Emergency Provider Emergency Medicine; PCP Family Medicine; Visit Provider Emergency Medicine
DX: R33.9 Retention of urine, unspecified (principal); J44.9 Chronic obstructive pulmonary disease, unspecified; F10.20 Alcohol dependence, uncomplicated; Y90.9 Presence of alcohol in blood, level not specified; S30.0XXA Contusion of lower back and pelvis, initial encounter; X58.XXXA Exposure to other specified factors, initial encounter; K59.00 Constipation, unspecified; F17.210 Nicotine dependence, cigarettes, uncomplicated; Z99.81 Dependence on supplemental oxygen; Z79.01 Long term (current) use of anticoagulants; Z79.899 Other long term (current) drug therapy; Z86.718 Personal history of other venous thrombosis and embolism
CPT/HCPCS: 51702; 72110; 74022; 80048; 81001; 85025; 96374; 99285; A4216

== ENCOUNTER 2022-09-06 16:36 | Emergency (ER) | payer MEDICARE, BC, SELFPAY ==
[2022-09-06] VITALS (7 sets, daily range): BP systolic 120–134; BP diastolic 70–78; PULSE 66–100; RESP 16–22; TEMP 36.4–36.7; O2SAT 95–99; BMI 30.8
--- NOTE | 2022-09-06 17:00 | EKG12_ITS ---
Test Reason : Blood Pressure : / mmHG Vent. Rate : 091 BPM Atrial Rate : 091 BPM P-R Int : 126 ms QRS Dur : 116 ms QT Int : 366 ms P-R-T Axes : 076 -61 073 degrees QTc Int : 450 ms Normal sinus rhythm Left anterior fascicular block Left ventricular hypertrophy with QRS widening and repolarization abnormality ( R in aVL , Marko pr oduct ) Abnormal ECG Confirmed by NASREEN MUÑOZ, PROSPER ([id number]), editor producer ABRAHAM CHAUHAN ([id number]) on 09/08/2022 2:15:00 P M Referred By: RALPH/GLORIA Confirmed By:LELO DOWNEY MD
[2022-09-06 17:55] LABS: Absolute Lymphocyte Count 1.13 X10^3/uL (0.83-4.51); Absolute Neutrophil Count 2.9 X10^3/uL (2.0-7.7); Basophil# 0.02 X10^3/uL; Basophil% 0.4 % (0-1); Eosinophil# 0.07 X10^3/uL; Eosinophils% 1.5 % (0-5); Hematocrit 39.6 % (40-54); Hemoglobin 13.2 g/dL (13.0-16.5); Lymphocyte # 1.13 X10^3/ul (0.83-4.51); Lymphocyte % 24.4 % (19-41); Mean Corp Hgb Conc 33.3 g/dL (32-36); Mean Corpuscular Hgb 34.8 pg (27.0-32.0); Mean Corpuscular Volume 104.5 fL (80-94); Mean Platelet Vol. 9.2 fl (6.2-12.0); Monocyte# 0.52 X10^3/uL; Monocyte% 11.2 % (0-10); NRBC Flagged by Analyzer 0 % (0-5); Neutrophil # 2.89 X10^3/uL (2.7-7.7); Neutrophil % 62.3 % (47-70); Platelet Count 107 K/mm3 (150-450); RBC Distribution Width CV 14.9 % (11.6-14.6); RBC Distribution Width SD 57.6 fl (35.1-43.9); Red Blood Count 3.79 M/mm3 (4.6-6.2); White Blood Count 4.6 K/mm3 (4.4-11.0)
[2022-09-06 18:09] LABS: Anion Gap 3 (5-15); BUN 13 mg/dL (7-18); BUN/Creat Ratio 23.3 RATIO (10-20); Calcium,Total 8.7 mg/dL (8.5-10.1); Chloride 101 mmol/L (98-107); Creatinine, Serum 0.56 mg/dL (0.70-1.30); EST Glomerular Filtration Rate 157 mL/min (>60); Est Glom Filt Rate - Afr Amer 189 mL/min (>60); Glucose 119 mg/dL (74-106); Sodium Level 141 mmol/L (136-145)
--- NOTE | 2022-09-06 19:14 | CT_ITS ---
EXAM: CT ANGIOGRAPHY CHEST WITHOUT AND WITH INTRAVENOUS CONTRAST CLINICAL INDICATION: sob, hx of PE TECHNIQUE: Helically acquired angiography images were obtained of the chest without and with intravenous contrast. This CT exam was performed using one or more of the following dose reduction techniques: automated exposure control, adjustment of the mA and/or kV according to patient size, and/or use of iterative reconstruction technique. This report was created using [employer] report generation technology. MIP reconstructed images were created and reviewed. CONTRAST: IV 100mL [id number] COMPARISON: None. FINDINGS: PULMONARY ARTERIES: Unremarkable. Normal in caliber. No evidence of pulmonary embolism. AORTA: Unremarkable. Normal in caliber. No evidence of dissection. GREAT VESSELS OF AORTIC ARCH: Unremarkable. Normal in caliber. No evidence of dissection. 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 No mass. No pleural effusion or thickening. No pneumothorax. HEART: Unremarkable. Heart size is normal. No pericardial effusion. No signs of right heart strain, ratio of right ventricle to left ventricle measures less than 1. MEDIASTINUM: Unremarkable. No mediastinal or hilar adenopathy. Esophagus is unremarkable. No hiatal hernia. THYROID: Unremarkable. No thyroid lesions. BONES/JOINTS: Unremarkable. No suspicious lytic or blastic abnormality. CT/CTA Chest W/WO Contrast IMPRESSION: No acute findings in the visualized arteries of the chest. Electronically Signed: Phong Shabazz MD at 20:40 EDT ,
--- NOTE | 2022-09-06 19:21 | EDS_ITS ---
HPI History of Present Illness Chief Complaint: Shortness of Breath Informant: patient and family Narrative Narrative: Patient is a 67-year-old male with history of COPD, chronic hypoxic respiratory failure on 3 L of oxygen at baseline, urinary retention (just had a Genao catheter removed on Sunday of this week by Dr. Kiran), prior PE on Eliquis depression and alcohol abuse presenting for family concern of worsening shortness of breath, weakness, confusion and alcohol detox. Patient was just at [facility] 2 weeks ago for COPD exacerbation. He has been immediately compliant with his albuterol inhaler but not his other inhalers. Patient is on Eliquis but has been intermittently compliant with that. He has a history of blood clots. Family notes his cough has been worse for about a week and he has more of a rattle in his chest. Patient states he just feels like giving up on life and just wants to drink himself to at home. He does not actually want to kill himself. Family is wanting for him to be evaluated for alcohol detox however patient does not want to stop drinking. Patient drinks multiple shots of liquor a day. He last had a couple shots at 230 this afternoon. Patient was seen in our hospital a week ago for acute urinary retention and fecal impaction that was treated with a Genao catheter that since been removed as well as GoLytely. His bowels and urination have normalized. Patient denies any fever or chills. Denies any color in his sputum production. Family feels that he is weaker. No nausea or vomiting reported. No other complaints at this time. [facility] Medical History Alcohol abuse COPD (chronic obstructive pulmonary disease) ETOH abuse History of DVT (deep vein thrombosis) Tobacco abuse Home Medications apixaban 5 mg tablet (Eliquis) 5 mg PO BID blood thinner 03/17/15 [History Last Taken 05/15/22] bupropion HCl 300 mg 24 hr tablet, extended release 300 mg PO DAILY mood 03/17/15 [History Last Taken 05/15/22] guaifenesin 600 mg tablet, extended release 12 hr (Mucus Relief ER) 1,200 mg PO BID copd 03/17/15 [History Last Taken 05/15/22] lorazepam 0.5 mg tablet 0.5 mg PO BID PRN PRN Anxiety 03/17/15 [History Last Taken Unknown] tiotropium bromide 18 mcg capsule with inhalation device (Spiriva with HandiHaler) 1 puff inhalation DAILY sob 03/17/15 [History Last Taken 05/15/22] albuterol sulfate 90 mcg/actuation aerosol inhaler 2 inh inhalation Q4H PRN PRN sob 05/16/22 [History Last Taken Unknown] docusate sodium 100 mg capsule (Colace) 100 mg PO BID 7 days #14 caps 09/01/22 [Rx Last Taken Unknown] peg 3350-electrolytes 236 gram-22.74 gram-6.74 gram-5.86 gram solution (Golytely) 240 ml PO Q10M PRN #4,000 mL 09/01/22 [Rx Last Taken Unknown] Allergy/AdvReac Type Severity Reaction Status Date / Time POLYMER Allergy NEEDS Uncoded 09/06/22 16:37 FOLLOW-UP Social History Smoking Status: Current every day smoker tobacco type: cigarettes ROS ROS ED Constitutional Constitutional ED: Denies chills or fever(s) Eyes Eyes: Denies change in vision ENT ENT ED: Denies rhinorrhea or sore throat Cardiovascular Cardiovascular: Denies chest pain or palpitations Respiratory/Chest Respiratory/Chest: Reports cough, dyspnea and dyspnea on exertion Gastrointestinal Gastrointestinal: Denies abdominal pain, constipation, diarrhea, nausea or vomiting Genitourinary Genitourinary ED: Denies dysuria, hematuria or urinary frequency Musculoskeletal Musculoskeletal: Denies arthralgias or myalgias Integumentary Denies rash Neurologic Neurologic: Denies headache(s) or weakness Psychiatric Psychiatric: Reports depression; Denies anxiety, suicidal ideation or suicidal thoughts Hematologic/Lymphatic Hematologic/Lymphatic: Reports easy bleeding and easy bruising EXAM Physical Exam Const Vital Signs: 09/06/22 16:37 09/06/22 18:04 09/06/22 18:04 Temperature 98.1 F 98.1 F Temperature Source Temporal Temporal Pulse Rate 95 91 91 Respiratory Rate 22 H 19 H 19 H Respiratory Effort Respiratory Depth Respiratory Pattern Blood Pressure 120/70 120/70 Blood Pressure Mean 86 86 Pulse Ox 95 96 96 Oxygen Delivery Method Nasal Cannula Nasal Cannula Nasal Cannula Oxygen Flow Rate (L/min) 4 3 3 09/06/22 18:04 09/06/22 18:04 09/06/22 18:31 Temperature Temperature Source Pulse Rate Respiratory Rate 19 H Respiratory Effort Normal Non-Labored Respiratory Depth Normal Respiratory Pattern Normal Blood Pressure Blood Pressure Mean Pulse Ox 96 96 Oxygen Delivery Method Nasal Cannula Nasal Cannula Nasal Cannula Oxygen Flow Rate (L/min) 3 3 3 09/06/22 19:00 09/06/22 19:00 09/06/22 20:00 Temperature 97.5 F L 97.6 F L Temperature Source Temporal Temporal Pulse Rate 100 100 91 Respiratory Rate 19 H 19 H Respiratory Effort Respiratory Depth Respiratory Pattern Blood Pressure 134/77 H 130/78 H Blood Pressure Mean 96 95 Pulse Ox 96 99 Oxygen Delivery Method Nasal Cannula Nasal Cannula Oxygen Flow Rate (L/min) 3 3 09/06/22 20:00 09/06/22 21:42 09/06/22 22:03 Temperature 97.8 F Temperature Source Pulse Rate 66 Respiratory Rate 19 H 16 Respiratory Effort Respiratory Depth Respiratory Pattern Blood Pressure 126/78 H Blood Pressure Mean Pulse Ox 97 99 Oxygen Delivery Method Nasal Cannula Oxygen Flow Rate (L/min) 3 Positive well nourished and well developed General Appearance ED: well developed and NAD HEENT Reports moist mucous membranes Negative for trauma Eyes PERRL and EOMs intact bilaterally Neck supple and no JVD Chest Wall inspection of chest normal and palpation of chest normal Resp normal respiratory effort Auscultation: diminished lung sounds right; Negative for rhonchi or wheezes Cardio regular rate, regular rhythm and no murmurs GI normal to inspection, nondistended, normoactive bowel sounds, non-tender and non-distended GI Narrative: Soft reducible umbilical hernia Back/Spine no CVA tenderness Extremity normal to inspection Neuro oriented x3 and no sensory deficits noted Sensorium / Orientation: alert Motor Exam: Negative for general weakness Psych mental status grossly normal Psych Narrative: No SI or HI Mood & Affect: depressed Skin no rashes or lesions noted and no wounds MDM MDM Lab Data Attestation: I reviewed the patient's lab results. Lab results narrative: Patient is evaluated for shortness of breath, worsening cough as well as concern for alcohol dependency. Patient is at his baseline oxygen. His vital signs are stable. He does have diminished breath sounds on the right side is given a DuoNeb. He does have some improvement of respiratory symptoms with this. Patient is feeling very anxious and feels that he is withdrawing. He is given dose of IV Ativan for his request. He is given IV fluids. Patient does not have a leukocytosis. Given recent hospitalization and questionable noncompliance with his Eliquis, CTA is ordered to rule out pulmonary emboli. CTA is negative for any acute process including infiltrate as well as PE. Patient's high-sensitivity troponin is 35. He is not complain of any chest pain he does not have ischemic changes on his EKG despite it being abnormal. I do not think this is ACS at this time. Patient's BMP is unremarkable. His alcohol is elevated at 251. Patient clinically does not appear intoxicated. Patient is evaluated by case management. I offered admission for detox if patient wants to be detoxed from alcohol multiple times start his ER stay however patient refuses stating he just wants to go home. While he has some passive thoughts of wanting to he has no actual suicidal ideations. His breathing seems to be at his baseline. Patient has been noncompliant with his maintenance inhalers and counseled the importance of using them regularly. I do not think patient requires medical admission at this time. I do not think he needs emergent psychiatric evaluation however he is given referral for other counseling center. Patient is encouraged return the emergency room should he change his mind and like to be admitted for alcohol detox. Patient discharged home with his children. He verbalizes given understands plan. Patient does have capacity to make these decisions at this time. Labs: Laboratory Results - last 24 hr 09/06/22 09/06/22 09/06/22 17:35 17:35 17:35 WBC 4.6 RBC 3.79 L Hgb 13.2 Hct 39.6 L MCV 104.5 H MCH 34.8 H MCHC 33.3 RDW Std Deviation 57.6 H RDW Coeff of Tyree 14.9 H Plt Count 107 L MPV 9.2 Immature Gran % (Auto) 0.200 Neut % (Auto) 62.3 Lymph % (Auto) 24.4 [place] % (Auto) 11.2 H Eos % (Auto) 1.5 Baso % (Auto) 0.4 Absolute Neuts (auto) 2.9 Absolute Lymphs (auto) 1.13 Nucleated RBC % 0 Sodium 141 Potassium 4.0 Chloride 101 Carbon Dioxide 37.0 H Anion Gap 3 L BUN 13 Creatinine 0.56 L Estim Creat Clear Calc 152.90 Est GFR (MDRD) Af Amer 189 Est GFR (MDRD) Non-Af 157 BUN/Creatinine Ratio 23.3 H Glucose 119 H Calcium 8.7 Troponin I High Sens 35 Ethyl Alcohol 09/06/22 19:40 WBC RBC Hgb Hct MCV MCH MCHC RDW Std Deviation RDW Coeff of Tyree Plt Count MPV Immature Gran % (Auto) Neut % (Auto) Lymph % (Auto) [place] % (Auto) Eos % (Auto) Baso % (Auto) Absolute Neuts (auto) Absolute Lymphs (auto) Nucleated RBC % Sodium Potassium Chloride Carbon Dioxide Anion Gap BUN Creatinine Estim Creat Clear Calc Est GFR (MDRD) Af Amer Est GFR (MDRD) Non-Af BUN/Creatinine Ratio Glucose Calcium Troponin I High Sens Ethyl Alcohol 251.0 Radiography Diagnostic Testing: Clinical Impression(s) from Imaging Studies Chest CTA 09/06/22 19:14 IMPRESSION: No acute findings in the visualized arteries of the chest. Electronically Signed: Phong Shabazz MD at 20:40 EDT , Rhythm Strip Rhythm Strip: Sinus Rhythm Rate: 91 Ectopy: None EKG Initial EKG: Attestation: I personally reviewed and interpreted this EKG as follows: Interpretation: Sinus Rhythm Comments: Normal sinus rhythm and rate of 91 Left axis deviation Left anterior fascicular block LVH with repolarization abnormality T wave inversion and aVL Prior EKG tracings: not available for review Discharge Plan Triage Chief Complaint: Shortness of Breath ED Provider: Christie Ruvalcaba Dx/Rx/DC Orders Clinical Impression: COPD (chronic obstructive pulmonary disease), Alcohol dependence Instructions: Alcohol and Older Adults, COPD Quit Smoking Prescriptions: No Action lorazepam 0.5 MG tablet 0.5 mg PO BID PRN PRN (Reason: Anxiety) bupropion HCl 300 MG tablet extended release 24 hr 300 mg PO DAILY Spiriva with HandiHaler 1 PUFF inhaler 1 puff inhalation DAILY Eliquis 5 MG tablet 5 mg PO BID guaifenesin [Mucus Relief ER] 600 MG tablet 1,200 mg PO BID albuterol sulfate 90 mcg/actuation HFA aerosol inhaler 2 inh INHALATION Q4H PRN PRN (Reason: sob) Label Comments: INHALE 2 PUFFS INSTRUCTED EVERY 4 HOURS NEEDED FOR WHEEZING/SHORTNESS OF BREATH. docusate sodium [Colace] 100 mg capsule 100 mg PO BID 7 Days Qty: 14 0RF peg 3350-electrolytes [Golytely] 236-22.74-6.74 -5.86 gram recon soln 240 ml PO Q10M PRN Qty: 4000 0RF Rx Instructions: until fecal effluent is clear Primary Care Provider: Jacklyn Rinaldi Referrals: Counseling,Center [Group of Physicians] - As soon as possible Jacklyn Rinaldi MD [Primary Care Provider] - Activity Restrictions/Additional Instructions: No signs of pneumonia today or other acute lung problems. If you change your mind and would like to come in for alcohol detox please return the emergency room. If you have worsening breathing please return to the emergency room. Disposition Disposition: Home, Self Care Discharge Date/Time: 09/06/22 22:23
[2022-09-06] MEDS: LORazepam 2 MG/ML Syringe 1 MG IV (19:39)
--- NOTE | 2022-09-06 20:02 | CM.ED ---
Social Work Consult: Mental Health Referral source: Dr. Ruvalcaba Chief Complaint: Patient presents to [facility] ED due to increased shortness of breath. Patient family would also like for patient to detox, patient is not interested in detox, substance of choice is alcohol. Patient made statement of I might be better off to Dr. Ruvalcaba. Marital/Social History: . Living Situation: Lives with spouse. Patient has multiple family members that live local. Support/resources: Not currently active in any community programs. History of working with [employer]. Family is supportive and involved. Transportation: Family drives. Patient no longer drives. DME: Home oxygen, 3-4L at home. Education/Employment: Denies issues with comprehension or understanding. [place]ired hearn[place] Mental Health Treatment/History: Depression. History of being on Prozac, but this made things worse per patient daughter. No history of inpatient psychiatric placements. Risk to Self/Others: Patient denies active suicidal thoughts, plans, intents. Patient denies homicidal thoughts, plans, or intents. Patient denies history of suicide attempt(s). Substance Abuse/Use: Patient reports to use/abuse alcohol daily. Patient reports substance of choice as Vodka. Patient reports use to be Prakash Vera, that is too hard on my gut. Patient smokes tobacco daily. Patient aware of risk of smoking tobacco while wearing oxygen. Mental Status Exam: A&Ox3 Appearance/General Behavior: Calm. Clean. Appropriate. Mood/Affect: Pleasant and engaged affect. Judgement: Fair Insight: Fair Assessment: Met with patient in room. Introduced self and social media assistant role. Patient agreeable to speak with this social media assistant. Patient has two adult children that are present in room. This social media assistant asked family members to leave the room, family members left the room willingly. This social media assistant broach topic of patient statement that patient made to Dr. Ruvalcaba I might be better off . Patient states well yeah, someone as sick as I am. Patient reports to be tired of being sick and not feeling good. Patient denies plan or intent to complete suicide but states would not mind if dies in sleep. Patient states I have lived a good life and am ready to go. Patient reports frustration with current medical situation and family controlling my life. Patient reports that family monitors patient alcohol use, they want me to live more. Patient states to not be concerned if patient lives longer or not, again no active suicidal intention just ready to go when I go. This social media assistant provided active listening and support. Patient laughing and engaging in conversation often throughout assessment. Patient identifies grandchildren and children as reasons to live and shares several stories/facts about family members that patient is proud of. This social media assistant broached conversation of substance abuse, patient declines [facility] and does not wish to seek treatment for substance abuse at this time. Patient states I know where I need to go if I want help. This social media assistant met with family outside patient room. Patient daughter and son report that patient has been making more comments about end of life, but again no specific plan or intent. Patient daughter is a school counselor. This social media assistant counseled patient family on lethal means. There are no guns in patient home and family keeps an eye on medications and monitors patient alcohol consumption. Patient family supportive and checks in on patient often. This social media assistant encouraged patient family to return with patient if patient has a suicidal attempt or expresses suicidal intention, patient son and daughter voiced understanding. Patient son and daughter aware that unable to force patient to detox and that it is patient choice to detox or not to detox. This social media assistant updated Dr. Ruvalcaba on above assessment. PLAN: To be determined from a medical stand point. From a mental health stand point patient is cleared for discharge to the community. Brenda COON, ANIYAH
[2022-09-06 20:18] LABS: Troponin-I HS 35 pg/mL (3.0-78.0)
== END 2022-09-06 22:23 | disposition home or self-care (01) ==
PROVIDERS: Emergency Provider Emergency Medicine; PCP Family Medicine; Visit Provider Emergency Medicine
DX: J44.9 Chronic obstructive pulmonary disease, unspecified (principal); F10.20 Alcohol dependence, uncomplicated; J96.11 Chronic respiratory failure with hypoxia; F17.210 Nicotine dependence, cigarettes, uncomplicated; Y90.8 Blood alcohol level of 240 mg/100 ml or more; Z99.81 Dependence on supplemental oxygen; Z79.01 Long term (current) use of anticoagulants; Z86.711 Personal history of pulmonary embolism
CPT/HCPCS: 71275; 80048; 82077; 84484; 85025; 87811; 93005; 94760; 96361; 96374; 99282; J7040; Q9967; A4216

== ENCOUNTER 2022-09-12 11:41 | Inpatient (IN) | payer MEDICARE, SELFPAY ==
[2022-09-12] VITALS (17 sets, daily range): BP systolic 106–125; BP diastolic 64–99; PULSE 16–122; RESP 16–220; TEMP 36.1; O2SAT 92–99; BMI 27.5
--- NOTE | 2022-09-12 11:59 | EDS_ITS ---
HPI History of Present Illness Chief Complaint: ETOH Intox Informant: patient Narrative Narrative: Patient brought in by EMS for evaluation of shortness of breath, cough, body aches. Patient reportedly is an alcoholic and has only been drinking lately, not wanting to eat or do anything else. EMS states they were initially called for an unresponsive male, but state patient was actually never unresponsive. They believe family stated this to get EMS to the house so patient could be transported. Patient does complain of cough with wheezing. He states he is supposed to use albuterol but does not use it regularly. He denies fever or chills. He has had a cough. He complains of generalized body aches over the past 3 days. [facility] Medical History (Updated 09/12/22 @ 14:[address] Ebony Duffy MD) Alcohol abuse COPD (chronic obstructive pulmonary disease) Depression ETOH abuse History of DVT (deep vein thrombosis) Tobacco abuse Home Medications apixaban 5 mg tablet (Eliquis) 5 mg PO BID blood thinner 03/17/15 [History Last Taken 05/15/22] guaifenesin 600 mg tablet, extended release 12 hr (Mucus Relief ER) 1,200 mg PO BID copd 03/17/15 [History Last Taken 05/15/22] tiotropium bromide 18 mcg capsule with inhalation device (Spiriva with HandiHaler) 1 puff inhalation DAILY sob 03/17/15 [History Last Taken 05/15/22] albuterol sulfate 90 mcg/actuation aerosol inhaler 2 inh inhalation Q4H PRN PRN sob 05/16/22 [History Last Taken Unknown] docusate sodium 100 mg capsule (Colace) 100 mg PO BID 7 days #14 caps 09/01/22 [Rx Last Taken Unknown] venlafaxine 37.5 mg tablet 37.5 mg PO DAILY 09/12/22 [History Last Taken Unknown] Allergy/AdvReac Type Severity Reaction Status Date / Time POLYMER Allergy NEEDS Uncoded 09/12/22 12:41 FOLLOW-UP Social History Smoking Status: Current every day smoker tobacco type: cigarettes ROS ROS ED Constitutional Constitutional ED: Denies chills or fever(s) Eyes Eyes: Denies change in vision or discharge from eye(s) ENT ENT ED: Denies discharge from eye(s), rhinorrhea or sore throat Cardiovascular Cardiovascular: Denies chest pain or palpitations Respiratory/Chest Respiratory/Chest: Reports cough, dyspnea and other Details: Wheezing Gastrointestinal Gastrointestinal: Reports other Details: Poor appetite ; Denies abdominal pain, diarrhea, nausea or vomiting Genitourinary Genitourinary ED: Denies dysuria Musculoskeletal Musculoskeletal: Reports back pain, extremity pain and myalgias Integumentary Denies Abrasions or rash Neurologic Neurologic: Denies headache(s) or weakness Psychiatric Psychiatric: Reports depression Allergic/Immunologic Allergic/Immunologic ED: Denies lip swelling or urticaria EXAM Physical Exam Const Vital Signs: 09/12/22 11:46 09/12/22 12:09 09/12/22 12:06 Temperature 97.0 F L Temperature Source Temporal Pulse Rate 93 96 Respiratory Rate 18 19 H Respiratory Effort Normal Respiratory Depth Normal Respiratory Pattern Normal Tachypnea Blood Pressure 119/99 H Blood Pressure Mean 105 Pulse Ox 96 Oxygen Delivery Method Nasal Cannula Nasal Cannula Oxygen Flow Rate (L/min) 2 2 09/12/22 13:13 09/12/22 14:39 Temperature Temperature Source Pulse Rate 90 96 Respiratory Rate 18 16 Respiratory Effort Respiratory Depth Respiratory Pattern Blood Pressure 111/71 120/84 H Blood Pressure Mean 84 96 Pulse Ox 94 94 Oxygen Delivery Method Nasal Cannula Room Air Oxygen Flow Rate (L/min) 5 Positive well nourished and well developed General Appearance ED: well developed HEENT Reports normocephalic and head/scalp atraumatic Eyes PERRL and EOMs intact bilaterally Neck supple Chest Wall inspection of chest normal and palpation of chest normal Resp normal respiratory effort Resp Narrative: Expiratory wheezes bilaterally. Cardio regular rate and regular rhythm GI non-tender Auscultation: hypoactive bowel sounds Palpation: soft Back/Spine no CVA tenderness Extremity normal to inspection Neuro oriented x3 and no sensory deficits noted Sensorium / Orientation: alert Motor Exam: strength 5/5 throughout Psych mental status grossly normal Skin no rashes or lesions noted MDM MDM MDM Narrative Medical decision making narrative: Patient placed on monitor technician. EKG, chest x-ray, lab work obtained. Patient given DuoNeb treatment and COVID test performed. Lab Data Attestation: I reviewed the patient's lab results. Labs: Laboratory Results - last 24 hr 09/12/22 09/12/22 09/12/22 12:20 12:20 12:20 WBC 5.2 RBC 3.87 L Hgb 13.9 Hct 39.1 L MCV 101.0 H MCH 35.9 H MCHC 35.5 RDW Std Deviation 56.0 H RDW Coeff of Tyree 14.9 H Plt Count 81 L MPV 9.1 Immature Gran % (Auto) 0.400 Neut % (Auto) 61.8 Lymph % (Auto) 24.6 [place] % (Auto) 10.3 H Eos % (Auto) 2.3 Baso % (Auto) 0.6 Absolute Neuts (auto) 3.2 Absolute Lymphs (auto) 1.27 Total Counted 0.03 Neutrophils % (Manual) 0.03 L Band Neutrophils % 0.03 Lymphocytes % (Manual) 0.03 L Monocytes % (Manual) 0.03 Eosinophils % (Manual) 0.03 Basophils % (Manual) 0.03 Metamyelocytes % 0.03 Myelocytes % 0.03 H Promyelocytes % 0.03 H Blast Cells % 0.03 H* Plasma Cell % (Manual) 0.03 Other Cells % 0.03 Nucleated RBC % 0 Differential Comment 0 Atypical Lymphocytes 0 Reactive Lymphocytes 0 Platelet Estimate MOD DEC Plt Morphology Comment MOD DEC RBC Morphology NORM C+C Sodium 139 Potassium 3.7 Chloride 97 L Carbon Dioxide 32.0 Anion Gap 10 BUN 19 H Creatinine 0.71 Estim Creat Clear Calc 123.97 Est GFR (MDRD) Af Amer 143 Est GFR (MDRD) Non-Af 118 BUN/Creatinine Ratio 26.7 H Glucose 86 Calcium 8.3 L B-Natriuretic Peptide Ethyl Alcohol 385.0 H* 09/12/22 12:20 WBC RBC Hgb Hct MCV MCH MCHC RDW Std Deviation RDW Coeff of Tyree Plt Count MPV Immature Gran % (Auto) Neut % (Auto) Lymph % (Auto) [place] % (Auto) Eos % (Auto) Baso % (Auto) Absolute Neuts (auto) Absolute Lymphs (auto) Total Counted Neutrophils % (Manual) Band Neutrophils % Lymphocytes % (Manual) Monocytes % (Manual) Eosinophils % (Manual) Basophils % (Manual) Metamyelocytes % Myelocytes % Promyelocytes % Blast Cells % Plasma Cell % (Manual) Other Cells % Nucleated RBC % Differential Comment Atypical Lymphocytes Reactive Lymphocytes Platelet Estimate Plt Morphology Comment RBC Morphology Sodium Potassium Chloride Carbon Dioxide Anion Gap BUN Creatinine Estim Creat Clear Calc Est GFR (MDRD) Af Amer Est GFR (MDRD) Non-Af BUN/Creatinine Ratio Glucose Calcium B-Natriuretic Peptide 32.3 Ethyl Alcohol Radiography Chest X-Ray - ED: 1 View, Read by ED Physician, Chronic Changes and No Infiltrates Diagnostic Testing: Clinical Impression(s) from Imaging Studies Chest X-Ray 09/12/22 12:25 IMPRESSION: Mild degree of increased markings at the lung bases suggestive of atelectasis. Electronically Signed: Steve Sanchez MD at 12:39 EDT , EKG Initial EKG: Attestation: I personally reviewed and interpreted this EKG as follows: Interpretation: Sinus Rhythm (Sinus at 92 with no acute ischemia.) Treatment and Re-Evaluation Narrative: Patient is sleeping comfortably on repeat evaluation. Oxygen is currently at 5 L to maintain O2 sats above 90% while asleep. When he is awake his oxygen can be turned down to 2 L. CBC and chemistry studies are largely unremarkable. Alcohol level is 385. BNP is normal. Chest x-ray per my interpretation reveals no focal infiltrate. Radiology interpretation is reviewed and agrees. COVID test is negative. EMS states patient made some remarks about wanting to . He did not make any suicidal statements to us. I did review his note from last week. At that time he had made statements that he just wishes to drink himself to , but he has no intention of actively trying to hurt himself. At this time he is not interested in detox. Once the patient is more sober, social work will evaluate him and help offer services. Patient will be signed out to oncoming physician for final disposition. Discharge Plan Triage Chief Complaint: ETOH Intox ED Provider: Ebony Duffy Dx/Rx/DC Orders Clinical Impression: ETOH abuse, COPD exacerbation, Viral syndrome Instructions: ED COPD Flare, ED Alcohol Intoxication, ED Viral Syndrome (Adult) Prescriptions: No Action Spiriva with HandiHaler 1 PUFF inhaler 1 puff inhalation DAILY Eliquis 5 MG tablet 5 mg PO BID guaifenesin [Mucus Relief ER] 600 MG tablet 1,200 mg PO BID albuterol sulfate 90 mcg/actuation HFA aerosol inhaler 2 inh INHALATION Q4H PRN PRN (Reason: sob) Label Comments: INHALE 2 PUFFS INSTRUCTED EVERY 4 HOURS NEEDED FOR WHEEZING/SHORTNESS OF BREATH. docusate sodium [Colace] 100 mg capsule 100 mg PO BID 7 Days Qty: 14 0RF venlafaxine 37.5 mg tablet 37.5 mg PO DAILY Primary Care Provider: Jacklyn Rinaldi Referrals: Jacklyn Rinaldi MD [Primary Care Provider] - 1 Week [facility] [Non-Staff] - As Needed Disposition Disposition: Home, Self Care
[2022-09-12] MEDS: Ipratropium/Albuterol Sulfate 3 ML AMPUL.NEB INHALATION ×2 (12:06→23:42)
[2022-09-12] MEDS: Albuterol 2.5 MG/3 ML VIAL.NEB. INHALATION ×2 (12:06→15:30)
--- NOTE | 2022-09-12 12:25 | RAD_ITS ---
STUDY: X-RAY CHEST REASON FOR EXAM: Male, 67 years old. Cough. TECHNIQUE: Single AP portable view of the chest. COMPARISON: None. FINDINGS: EKG electrodes are seen. Mild degree of increased markings at the lung bases suggestive of bibasilar atelectasis. There is no demonstrated pleural abnormality. Normal size heart. Normal mediastinum and pipo. Normal visualized pulmonary arteries. There is atherosclerotic tortuosity of the aortic arch and descending thoracic aorta. There are diffuse degenerative changes of the visualized thoracic spine. Normal visualized ribs, clavicles, and shoulders. There is no demonstrated abnormality of the visualized soft tissue structures of the upper abdomen. RAD/Chest 1 View (Portable) IMPRESSION: Mild degree of increased markings at the lung bases suggestive of atelectasis. Electronically Signed: Steve Sanchez MD at 12:39 EDT ,
--- NOTE | 2022-09-12 12:28 | ED.RN ---
PT BEING VERBALLY ABUSIVE TOWARDS STAFF. PT MAKING SEXUAL REFERENCES TO STAFF. PT TOLD ON MULTIPLE OCCASIONS THAT HIS BEHAVIOR IN NOT APPROPRIATE
[2022-09-12] MEDS: Ketorolac 30 MG/ML Syringe IV (12:37)
[2022-09-12 12:38] LABS: Absolute Lymphocyte Count 1.27 X10^3/uL (0.83-4.51); Absolute Neutrophil Count 3.2 X10^3/uL (2.0-7.7); Basophil# 0.03 X10^3/uL; Basophil% 0.6 % (0-1); Eosinophil# 0.12 X10^3/uL; Eosinophils% 2.3 % (0-5); Hematocrit 39.1 % (40-54); Hemoglobin 13.9 g/dL (13.0-16.5); Lymphocyte # 1.27 X10^3/ul (0.83-4.51); Lymphocyte % 24.6 % (19-41); Mean Corp Hgb Conc 35.5 g/dL (32-36); Mean Corpuscular Hgb 35.9 pg (27.0-32.0); Mean Platelet Vol. 9.1 fl (6.2-12.0); Monocyte# 0.53 X10^3/uL; Monocyte% 10.3 % (0-10); NRBC Flagged by Analyzer 0 % (0-5); Neutrophil % 61.8 % (47-70); POSITIVE COUNT YES; Platelet Count 81 K/mm3 (150-450); RBC Distribution Width CV 14.9 % (11.6-14.6); Red Blood Count 3.87 M/mm3 (4.6-6.2); White Blood Count 5.2 K/mm3 (4.4-11.0)
[2022-09-12 12:39] LABS: Differential Indicated SCAN CRITERIA MET
[2022-09-12 12:48] LABS: Anion Gap 10 (5-15); BUN 19 mg/dL (7-18); BUN/Creat Ratio 26.7 RATIO (10-20); Calcium,Total 8.3 mg/dL (8.5-10.1); Chloride 97 mmol/L (98-107); Creatinine, Serum 0.71 mg/dL (0.70-1.30); EST Glomerular Filtration Rate 118 mL/min (>60); Est Glom Filt Rate - Afr Amer 143 mL/min (>60); Estimated Creatinine Clearance 123.97 ml/min; Glucose 86 mg/dL (74-106); Potassium 3.7 mmol/L (3.5-5.1); Sodium Level 139 mmol/L (136-145)
[2022-09-12 13:07] LABS: Platelet Estimate MOD DEC (ADEQ)
[2022-09-12 13:09] LABS: Platelet Morphology MOD DEC; Red Cell Morphology NORM C+C NORMAL (NORM C&C)
[2022-09-12 13:10] LABS: Atypical Lymphocyte 0 %; Basophil 0.03 % (0-1); Blast 0.03 % (0-0); Differential Comment 0; Eosinophil 0.03 % (0-5); Lymphocyte 0.03 % (19-41); Metamyelocyte 0.03 % (0-1); Monocyte 0.03 % (0-10); Myelocyte 0.03 % (0-0); Neutrophil-Band 0.03 % (0-5); Neutrophil-Segmented 0.03 % (47-70); Other WBC Type 0.03 %; Plasma Cell 0.03 %; Promyelocyte 0.03 % (0-0); Reactive Lymphocyte 0; Total Cells Counted 0.03 (MANUAL DIFF)
--- NOTE | 2022-09-12 13:11 | ED.RN ---
PT SLEEPING, SATURATION AT 88. OXYGEN INCREASED TO [address] VILLARREAL. PT ON 5 LITERS SLEEPING WITH A SATURATION OF 93
[2022-09-12 13:29] LABS: BNP,B-Type NATRIURETIC PEPTIDE 32.3 pg/mL (0-100)
[2022-09-12] MEDS: Acetaminophen 500 MG Tablet 1000 MG PO (15:15)
--- NOTE | 2022-09-12 16:08 | NURSING ---
Pt stating he wants to physically leave the planet. He was trying to swallow his hamburger for lunch but unable to and spit it out in a bag. This RN stated to the pt that he was able to swallow his pills fine and drink water to get it down and asked him to explain why he couldn't swallow his hamburger? Pt unable to explain and thought maybe it was his brain.
[2022-09-12] MEDS: LORazepam 2 MG/ML Syringe 1 MG IV ×2 (16:43→21:56)
--- NOTE | 2022-09-12 20:01 | CM.ED ---
CHRISTOPHER called Crisis and advised Candice that patient will need to be seen. CHRISTOPHER sent the RN notes regarding patient's SI statements today and also previous assessment from last week. CHRISTOPHER faxed information to Candice at Crisis. Graciela PEÑA
--- NOTE | 2022-09-12 20:13 | ED.RN ---
Called and requested I call for his family to bring his cell phone in. LMOM.
[2022-09-13] VITALS (16 sets, daily range): BP systolic 120–153; BP diastolic 62–96; PULSE 84–122; RESP 16–26; TEMP 36.4–37.1; O2SAT 93–97; BMI 27.0
[2022-09-13] MEDS: LORazepam 2 MG/ML Syringe 1 MG IV ×3 (00:03→04:14)
--- NOTE | 2022-09-13 01:22 | ED.RN ---
PATIENT CONTINUES TO PRESS HIS CALL LIGHT EVERY 10-15 MINUTES TO HAVE THIS NURSE MAKE HIS FAMILY COME IN. EXPLAINED I HAVE LMOM FOR FAMILY AND THEY WERE HERE EARLIER, MIDDLE OF THE NIGHT AND THEY WILL NOT BE COMING BACK TONIGHT. PATIENT KEEPS REMOVING HIS OXYGEN AND MONITORING DEVICES BUT HAS BEEN REMINDED TO LEAVE IT ON. REMINDED OF ALL THIS AGAIN AND GIVEN A COKE TO DRINK. PATIENT REMINDED IT IS MIDDLE OF THE NIGHT AND TO TRY AND SLEEP. REMINDED PATIENT WE ARE WAITING ON HIS LAB LEVEL FOR ETOH SO HE CAN TALK TO CRISIS ABOUT HIS STATEMENTS ABOUT SUICIDE.
--- NOTE | 2022-09-13 02:04 | NURSING ---
DR CRISOSTOMO AWARE OF HALLUCINATIONS AND REQUEST FOR MED. STILL STATES SUICIDAL. REQUEST FOR CRISIS CALL
[2022-09-13] MEDS: Phenobarbital Sodium 130 MG/ML Vial 100 MG IV (04:32)
--- NOTE | 2022-09-13 08:14 | ED.RN ---
DECLINED BY JAVIER DE LUNA
--- NOTE | 2022-09-13 09:36 | HP.PCM.HOS_ITS ---
HPI - General General Date of Admission: 09/13/22 Date of Service: 09/13/22 Chief Complaint: Tremulousness HPI Narrative LIT JOHNSON, is a 67 M with history of chronic alcohol dependence who was brought to the emergency department by the family on account of excessive alcohol intake. Patient reports feeling depressed and feeling suicidal. He had apparently not been eating for days. Patient was found to be intoxicated with alcohol level of 124. He was assessed to be at risk for withdrawal. Attempts were made to have patient transferred to a facility capable of managing his severe depression as well as acute alcohol withdrawal. Decision was made to admit patient to regular nursing floor after ER his inability to secure a bed at an external facility. [facility] Medical History Alcohol abuse COPD (chronic obstructive pulmonary disease) Depression ETOH abuse History of DVT (deep vein thrombosis) Tobacco abuse Home Medications apixaban 5 mg tablet (Eliquis) 5 mg PO BID blood thinner 03/17/15 [History Last Taken 05/15/22] guaifenesin 600 mg tablet, extended release 12 hr (Mucus Relief ER) 1,200 mg PO BID copd 03/17/15 [History Last Taken 05/15/22] tiotropium bromide 18 mcg capsule with inhalation device (Spiriva with HandiHaler) 1 puff inhalation DAILY sob 03/17/15 [History Last Taken 05/15/22] albuterol sulfate 90 mcg/actuation aerosol inhaler 2 inh inhalation Q4H PRN PRN sob 05/16/22 [History Last Taken Unknown] docusate sodium 100 mg capsule (Colace) 100 mg PO BID 7 days #14 caps 09/01/22 [Rx Last Taken Unknown] venlafaxine 37.5 mg tablet 37.5 mg PO DAILY 09/12/22 [History Last Taken Unknown] Allergy/AdvReac Type Severity Reaction Status Date / Time POLYMER Allergy NEEDS Uncoded 09/12/22 12:41 FOLLOW-UP Family History (Updated 09/13/22 @ 09:[address] Roni Brooke MD) Father Heart disease Mother Heart disease Social History Smoking Status: Current every day smoker tobacco type: cigarettes ROS ROS Narrative GENERAL: anorexia HEENT: denies headache, sinus congestion, RESPIRATORY: denies cough, sputum production, CARDIAC: denies chest pain, palpitations, orthopnea, GASTROINTESTINAL: denies abdominal pain, nausea, GENITOURINARY: denies dysuria, urgency, frequency, EXTREMITY: denies swelling MUSCULOSKELETAL: denies current joint pain or tenderness NEUROLOGIC: denies focal numbness, weakness, tingling HEMATOLOGIC: denies easy bruising and/or hemorrhage INTEGUMENT: denies rashes PSYCHIATRIC: Severe depression Vital Signs Vital Signs Vital Signs: 09/12/22 11:46 09/12/22 12:09 09/12/22 12:06 Temperature 97.0 F L Temperature Source Temporal Pulse Rate 93 96 Respiratory Rate 18 19 H Respiratory Effort Normal Respiratory Depth Normal Respiratory Pattern Normal Tachypnea Blood Pressure 119/99 H Blood Pressure Mean 105 Pulse Ox 96 Oxygen Delivery Method Nasal Cannula Nasal Cannula Oxygen Flow Rate (L/min) 2 2 09/12/22 13:13 09/12/22 14:39 09/12/22 15:31 Temperature Temperature Source Pulse Rate 90 96 93 Respiratory Rate 18 16 18 Respiratory Effort Respiratory Depth Respiratory Pattern Normal Blood Pressure 111/71 120/84 H Blood Pressure Mean 84 96 Pulse Ox 94 94 Oxygen Delivery Method Nasal Cannula Room Air Oxygen Flow Rate (L/min) 5 09/12/22 13:45 09/12/22 15:00 09/12/22 15:57 Temperature Temperature Source Pulse Rate 98 96 92 Respiratory Rate 19 H 16 16 Respiratory Effort Respiratory Depth Respiratory Pattern Blood Pressure 112/65 120/84 H 120/80 Blood Pressure Mean 80 96 93 Pulse Ox 92 94 94 Oxygen Delivery Method Nasal Cannula Nasal Cannula Nasal Cannula Oxygen Flow Rate (L/min) 3 5 5 09/12/22 15:58 09/12/22 17:30 09/12/22 18:24 Temperature Temperature Source Pulse Rate 99 16 L 102 H Respiratory Rate 220 H 16 17 Respiratory Effort Respiratory Depth Respiratory Pattern Blood Pressure 112/65 111/64 106/65 Blood Pressure Mean 80 79 78 Pulse Ox 92 95 96 Oxygen Delivery Method Nasal Cannula Nasal Cannula Nasal Cannula Oxygen Flow Rate (L/min) 3 3 3 09/12/22 19:52 09/12/22 21:16 09/12/22 21:39 Temperature Temperature Source Pulse Rate 116 H 122 H Respiratory Rate 20 H Respiratory Effort Respiratory Depth Respiratory Pattern Blood Pressure 125/73 H Blood Pressure Mean 90 Pulse Ox 96 Oxygen Delivery Method Room Air Oxygen Flow Rate (L/min) 09/12/22 22:00 09/12/22 23:42 09/12/22 23:57 Temperature Temperature Source Pulse Rate 108 H 115 H Respiratory Rate 21 H 23 H Respiratory Effort Respiratory Depth Respiratory Pattern Blood Pressure Blood Pressure Mean Pulse Ox 96 99 Oxygen Delivery Method Nasal Cannula Room Air Oxygen Flow Rate (L/min) 09/13/22 00:06 09/13/22 01:14 09/13/22 02:04 Temperature Temperature Source Pulse Rate 110 H 122 H Respiratory Rate 26 H Respiratory Effort Respiratory Depth Respiratory Pattern Blood Pressure Blood Pressure Mean Pulse Ox 93 97 Oxygen Delivery Method Nasal Cannula Nasal Cannula Oxygen Flow Rate (L/min) 09/13/22 04:02 09/13/22 04:37 09/13/22 05:33 Temperature Temperature Source Pulse Rate 105 H 110 H 100 Respiratory Rate 22 H 17 Respiratory Effort Respiratory Depth Respiratory Pattern Blood Pressure 148/91 H 148/90 H Blood Pressure Mean 110 109 Pulse Ox 96 97 96 Oxygen Delivery Method Nasal Cannula Room Air Nasal Cannula Oxygen Flow Rate (L/min) Weight Weight: 99.8 kg Body Mass Index (BMI) 27.5 Physical Exam Narrative GENERAL: Tremulous HEENT: Atraumatic; normocephalic EYES; Anicteric, Normal Conjunctiva NECK; supple, normal thyroid, RESPIRATORY: Diminished to auscultation CARDIOVASCULAR: Regular S1 S2, GI: soft, normoactive bowel sounds, : No Renal angle tenderness; EXTREMITIES: No edema, no clubbing, MUSCULOSKELETAL: no muscle wasting NEURO: Awake; no lateralizing signs. SKIN: No Rash PSYCH; Flat affect Results Lab / Micro Data Result Diagrams: 09/12/22 12:20 09/12/22 12:20 Labs: Laboratory Results - last 24 hr 09/12/22 12:20: WBC 5.2, RBC 3.87 L, Hgb 13.9, Hct 39.1 L, MCV 101.0 H, MCH 35.9 H, MCHC 35.5, RDW Std Deviation 56.0 H, RDW Coeff of Tyree 14.9 H, Plt Count 81 L, MPV 9.1, Immature Gran % (Auto) 0.400, Neut % (Auto) 61.8, Lymph % (Auto) 24.6, [place] % (Auto) 10.3 H, Eos % (Auto) 2.3, Baso % (Auto) 0.6, Absolute Neuts (auto) 3.2, Absolute Lymphs (auto) 1.27, Total Counted 0.03, Neutrophils % (Manual) 0.03 L, Band Neutrophils % 0.03, Lymphocytes % (Manual) 0.03 L, Monocytes % (Manual) 0.03, Eosinophils % (Manual) 0.03, Basophils % (Manual) 0.03, Metamyelocytes % 0.03, Myelocytes % 0.03 H, Promyelocytes % 0.03 H, Blast Cells % 0.03 H*, Plasma Cell % (Manual) 0.03, Other Cells % 0.03, Nucleated RBC % 0, Differential Comment 0, Atypical Lymphocytes 0, Reactive Lymphocytes 0, Platelet Estimate MOD DEC, Plt Morphology Comment MOD DEC, RBC Morphology NORM C+C 09/12/22 12:20: Sodium 139, Potassium 3.7, Chloride 97 L, Carbon Dioxide 32.0, Anion Gap 10, BUN 19 H, Creatinine 0.71, Estim Creat Clear Calc 123.97, Est GFR (MDRD) Af Amer 143, Est GFR (MDRD) Non-Af 118, BUN/Creatinine Ratio 26.7 H, Glucose 86, Calcium 8.3 L 09/12/22 12:20: Ethyl Alcohol 385.0 H* 09/12/22 12:20: B-Natriuretic Peptide 32.3 09/13/22 01:13: Ethyl Alcohol 124.0 Micro: Microbiology 09/12/22 12:00 Nasal Secretion SARS-CoV-2 Antigen (Rapid) - Final Radiology Impression Chest X-Ray 09/12/22 12:25 IMPRESSION: Mild degree of increased markings at the lung bases suggestive of atelectasis. Electronically Signed: Steve Sanchez MD at 12:39 EDT , Assessment & Plan Assessment/Plan (1) ETOH abuse: PLAN: Plan Patient is a 67-year-old gentleman with history of chronic alcohol dependence admitted with acute alcohol intoxication with severe depression at risk for alcohol withdrawal 1. Acute alcohol intoxication with significant risk for alcohol withdrawal ? Patient has been admitted to a monitored bed managed with phenobarb taper for alcohol withdrawal in addition to adjuvant treatment. Consult placed to [phone] 2. Severe depression with suicidal ideation ? Plan is for patient to be referred to psych once medically stable 3. Chronic alcohol dependence ? Counseled on cessation 4. Previous history of DVT ? Patient is on apixaban did continue 5. COPD ? Currently not in exacerbation aerosol treatments as needed 6Tobacco dependence - Counseled on cessation, offered nicotine patch for tobacco cravings. Charges/Coding Visit Charges Inpatient E&M: 37556 Init Hosp L2
--- NOTE | 2022-09-13 10:23 | NURSING ---
pt with incont loose stools. was standing at doorway of room awake. back to bed. alert to place and time at this time.aware that spoke to and aware of admission for detox. consent for med detox program went over after attends changed and pt moved up in bed. consent signed. pt coop. mod to severe shaking noted.
--- NOTE | 2022-09-13 10:50 | CASEMGMT ---
Addendum entered by Barbi Oconnor 09/13/22 11:00: Received Crisis Eval. Given to HEALTH INFORMATION TECHNICIAN, Rehana, to be added to pt chart. Original Note: Social Work SW received call from ED CHRISTOPHER Jackson, informing that pt coming to [facility]. Renetta explained pt was having SI as of yesterday and had evaluation by Crisis but that no evaluation had been sent to ED for review. Renetta suggested this SW call Crisis to confirm details of pt discharge plan. CHRISTOPHER called crisis and spoke to Ifrah. Ifrah confirmed pt reported having plan to kill self and would need a sitter. Ifrah also reported plan was after pt detox is complete to go to [facility] for inpatient treatment. Ifrah discussed intent to follow up with [facility] to confirm pt can come once detox is completed and to call this SW back with details. Ifrah also agreed to send copy of pt crisis evaluation via fax to [facility]. PLAN: Detox then discharge to [facility] for inpatient treatment. CAROLINE Pardo
[2022-09-13] MEDS: Phenobarbital 32.4 MG Tablet 64.8 MG PO ×4 (10:57→22:45)
[2022-09-13] MEDS: APIXABAN 5 MG TABLET PO ×2 (10:57→20:12)
[2022-09-13] MEDS: Lactated Ringers 1,000 ML 125 ML IV (10:58)
[2022-09-13] MEDS: guaiFENesin 1,200 MG Tablet 1200 MG PO ×2 (10:58→20:10)
[2022-09-13] MEDS: Docusate Sodium 100 MG Capsule PO (10:58)
--- NOTE | 2022-09-13 11:07 | NURSING ---
pt asked if he had thoughts of hurting self. pt stated yes, asked if he had a plan he stated yes. asked what his plan was he stated to drink himself to . pt placed in suicide precautions.
[2022-09-13] MEDS: Venlafaxine HCl 75 MG Tablet 37.5 MG PO (11:20)
[2022-09-13] MEDS: Ondansetron 8 MG Tablet PO (11:21)
[2022-09-13] MEDS: Ensure Plus High Protein 120 ML LIQUID PO ×2 (11:23→14:56)
--- NOTE | 2022-09-13 11:23 | CASEMGMT ---
Addendum entered by Barbi Oconnor 09/13/22 14:34: Destini from [facility] called back to discuss pt case. Destini stated [facility] will not be sending more referrals for pt until pt is medically cleared as any referral will be denied due to medical status of pt. Destini stated even if facilities are informed pt will not go until medically cleared the facilities will deny and are not willing to accept until pt would be medically stable. CHRISTOPHER updated Dr. Brooke if this information. Christopher made Dr. Brooke aware medical clearance will be needed in writing when pt ready to be placed. Dr. Brooke understanding. CAROLINE Pardo Original Note: Social work CHRISTOPHER received call from Ifrah at [facility]. Ifrah reports pt denied at [facility] for medical concerns. Ifrah asked if pt can be held at [facility] for a few days before new referral is sent to other options to reduce risk of pt being denied again. CHRISTOPHER explained plan needs to be in place and assured Ifrah that pt will not be discharged until deemed medically stable and ready by Dr. Brooke or other hospitalists on pt case. Ifrah shared many places will deny pt for medical concerns. CHRISTOPHER encouraged Ifrah to inform referrals that pt will be medically stable upon discharge and that pt's can include this on progress note. Ifrah discussed intent to send referral to alternative options. Pt would likely benefit from dual treatment center for MH/Psych and Substance Abuse treatment. Ifrah informed this is the avenue [facility] will looking into for placement. PLAN: Await medical stabilization and inpatient placement via [facility] CAROLINE Pardo
[2022-09-13] MEDS: Ipratropium 0.5 MG/2.5 ML SOLUTION INHALATION ×2 (13:45→19:31)
[2022-09-13 18:29] LABS: TCA Internal Control -Neg LINE = VALID (- VALID); TCA Urine Drug Screen Negative (<1000 ng/mL)
[2022-09-13 19:14] LABS: Amphetamine Urine VISTA NEGATIVE (<1000 ng/mL); Barbiturate Urine VISTA POSITIVE (< 200 ng/mL); Benzodiazepine Urine VISTA POSITIVE (< 200 ng/mL); Cocaine Urine VISTA NEGATIVE (< 300 ng/mL); Ecstacy Urine VISTA NEGATIVE (< 500 ng/mL); Methadone Urine VISTA NEGATIVE (< 300 ng/mL); PCP Urine VISTA NEGATIVE (< 25 ng/mL); THC Urine VISTA NEGATIVE (< 50 ng/mL); Vista UDS pH Range 5
[2022-09-13] MEDS: Gabapentin 300 MG Capsule PO (20:09)
[2022-09-13] MEDS: Acetaminophen 500 MG Tablet PO (20:09)
[2022-09-13] MEDS: Menthol/Lanolin/Calamine/Znox 113 GM Tube 1 APPLIC TOPICAL (20:11)
[2022-09-14] VITALS (8 sets, daily range): BP systolic 91–114; BP diastolic 51–68; PULSE 73–110; RESP 16–18; TEMP 36.6–37.1; O2SAT 94–98
[2022-09-14] MEDS: hydrOXYzine PAM 25 MG Capsule 50 MG PO ×4 (01:35→20:32)
[2022-09-14] MEDS: traZODone 100 MG Tablet PO (02:20)
[2022-09-14] MEDS: Phenobarbital 32.4 MG Tablet 64.8 MG PO ×6 (03:00→22:43)
[2022-09-14] MEDS: Acetaminophen 500 MG Tablet PO ×2 (04:08→20:33)
--- NOTE | 2022-09-14 08:07 | PCM.PN.HOSP ---
Subjective Subjective Patient seen appears quite lethargic but easily arousable Objective Data Objective Data Vital Signs: Vital Signs Temp Pulse Resp BP Pulse Ox O2 Del Method O2 Flow Rate 98.5 F 85 16 100/57 L 95 Nasal Cannula 3 09/14/22 06:00 09/14/22 06:00 09/14/22 06:00 09/14/22 06:00 09/14/22 06:00 09/14/22 06:00 09/14/22 06:00 Oxygen Flow Rate (L/min) 3 Oxygen Delivery Method Nasal Cannula Weight: 97.976 kg Body Mass Index (BMI) 27.0 Intake & Output: Intake and Output for Last 24 Hours 09/12/22 09/13/22 09/14/22 23:59 23:59 23:59 Intake Total 1006.25 / 1106.25 200 / 200 Output Total 400 / 400 200 / 200 Balance 606.25 / 706.25 0 / 0 Medical Nutrition Assessment Dietitian: Malnutrition Criteria Met Start: 09/13/22 14:21 Freq: Status: Active Protocol: Document 09/13/22 14:21 (Rec: 09/13/22 14:22 [id number]) Nutrition Malnutrition Evidence of Malnutrition Exists Yes Malnutrition (severe): Chronic Evidenced By Suboptimal Energy Intake ( Severe),Weight Loss (Severe) Clinical Problem Chronic Disease or Condition Related Malnutrition Etiology severe, chronic malnutrition related to inadequate protein/ calorie intake in context of alcohol abuse Signs/Symptoms as evidenced by estimated PO intake meeting <75% of estimated energy needs > 3 months; unintentional wt loss of 25.8#/11% x 4 months Status Active Problem Recommendation Dietitian Recommendations/Changes regular diet; ensure plus high protein 120 mL 4x/day for additional calories/protein given signs/symptoms of malnutrition Lab / Micro Data Result Diagrams: 09/12/22 12:20 09/12/22 12:20 Labs: Laboratory Results - last 24 hr 09/13/22 17:37: Tricyclics Screen Negative, Ur Drug Screen Comment 09/13/22 17:37: Urine Opiates Screen NEGATIVE, Urine Methadone Screen NEGATIVE, Ur Barbiturates Screen POSITIVE H, Ur Phencyclidine Scrn NEGATIVE, Ur Amphetamines Screen NEGATIVE, MDMA (Ecstasy) Screen NEGATIVE, U Benzodiazepines Scrn POSITIVE H, Urine Cocaine Screen NEGATIVE, U Cannabinoids Screen NEGATIVE, Ur Drug Screen Comment Micro: Microbiology 09/12/22 12:00 Nasal Secretion SARS-CoV-2 Antigen (Rapid) - Final Physical Exam Narrative GENERAL: In no apparent distress HEENT: Atraumatic; normocephalic EYES; Anicteric, Normal Conjunctiva NECK; supple, normal thyroid, RESPIRATORY: Diminished to auscultation CARDIOVASCULAR: Regular S1 S2, GI: soft, normoactive bowel sounds, : No Renal angle tenderness; EXTREMITIES: No edema, no clubbing, MUSCULOSKELETAL: no muscle wasting NEURO: Awake; no lateralizing signs. SKIN: No Rash PSYCH; Flat affect Assessment & Plan Assessment/Plan (1) ETOH abuse: PLAN: Plan Patient is a 67-year-old gentleman with history of chronic alcohol dependence admitted with acute alcohol intoxication with severe depression at risk for alcohol withdrawal 1. Acute alcohol intoxication with significant risk for alcohol withdrawal ? Patient has been admitted to a monitored bed managed with phenobarb taper for alcohol withdrawal in addition to adjuvant treatment. 09/24/2022. Has tolerated the phenobarb taper well so far 2. Severe depression with suicidal ideation ? Plan is for patient to be referred to psych once medically stable 3. Chronic alcohol dependence ? Counseled on cessation 4. Previous history of DVT ? Patient is on apixaban did continue 5. COPD ? Currently not in exacerbation aerosol treatments as needed 6Tobacco dependence - Counseled on cessation, offered nicotine patch for tobacco cravings. Charges/Coding Visit Charges Inpatient E&M: 25728 Subs Hosp L2
--- NOTE | 2022-09-14 09:43 | NURSING ---
bench worker Veronica updated on Dr. Brooke's response. Aware to fax etoh level results to [facility] at [phone]
[2022-09-14] MEDS: Folic Acid 1 MG Tablet PO (10:20)
[2022-09-14] MEDS: Venlafaxine HCl 75 MG Tablet 37.5 MG PO (10:20)
[2022-09-14] MEDS: Thiamine Hydrochloride 100 MG Tablet PO (10:20)
[2022-09-14] MEDS: APIXABAN 5 MG TABLET PO ×2 (10:20→20:32)
[2022-09-14] MEDS: guaiFENesin 1,200 MG Tablet 1200 MG PO ×2 (10:21→20:32)
[2022-09-14] MEDS: Menthol/Lanolin/Calamine/Znox 113 GM Tube 1 APPLIC TOPICAL ×2 (10:22→20:34)
[2022-09-14] MEDS: Ensure Plus High Protein 120 ML LIQUID PO (10:25)
[2022-09-14 11:24] LABS: Alcohol, Blood (Medical)-Serum < 3.0 mg/dL
--- NOTE | 2022-09-14 11:48 | NURSING ---
ETOH results faxed to [facility] as requested by crisis
[2022-09-14] MEDS: Gabapentin 300 MG Capsule PO (16:13)
[2022-09-14] MEDS: Ipratropium 0.5 MG/2.5 ML SOLUTION INHALATION (19:59)
[2022-09-14] MEDS: Loperamide 2 MG Capsule PO (20:32)
[2022-09-15] VITALS (8 sets, daily range): BP systolic 100–119; BP diastolic 45–69; PULSE 82–101; RESP 16–20; TEMP 36.6–37.2; O2SAT 94–98
[2022-09-15] MEDS: Phenobarbital 32.4 MG Tablet 64.8 MG PO ×5 (02:35→19:28)
[2022-09-15] MEDS: Gabapentin 300 MG Capsule PO ×2 (03:04→16:30)
[2022-09-15] MEDS: hydrOXYzine PAM 25 MG Capsule 50 MG PO ×2 (04:39→15:10)
--- NOTE | 2022-09-15 07:41 | PCM.PN.HOSP ---
Subjective Subjective Patient seen appears quite lethargic. Awaiting transfer to [place] Objective Data Objective Data Vital Signs: Vital Signs Temp Pulse Resp BP Pulse Ox O2 Del Method O2 Flow Rate 99 F 85 18 100/56 L 97 Nasal Cannula 3 09/15/22 02:23 09/15/22 02:23 09/15/22 02:23 09/15/22 02:23 09/15/22 02:23 09/15/22 02:23 09/15/22 02:23 Oxygen Flow Rate (L/min) 3 Oxygen Delivery Method Nasal Cannula Weight: 97.976 kg Body Mass Index (BMI) 27.0 Intake & Output: Intake and Output for Last 24 Hours 09/13/22 09/14/22 09/15/22 23:59 23:59 23:59 Intake Total 1006.25 / 1106.25 200 / 200 Output Total 400 / 400 200 / 201 / Balance 606.25 / 706.25 0 / -1 -1 / -1 Medical Nutrition Assessment Dietitian: Malnutrition Criteria Met Start: 09/13/22 14:21 Freq: Status: Active Protocol: Document 09/13/22 14:21 AG (Rec: 09/13/22 14:22 [id number]) Nutrition Malnutrition Evidence of Malnutrition Exists Yes Malnutrition (severe): Chronic Evidenced By Suboptimal Energy Intake ( Severe),Weight Loss (Severe) Clinical Problem Chronic Disease or Condition Related Malnutrition Etiology severe, chronic malnutrition related to inadequate protein/ calorie intake in context of alcohol abuse Signs/Symptoms as evidenced by estimated PO intake meeting <75% of estimated energy needs > 3 months; unintentional wt loss of 25.8#/11% x 4 months Status Active Problem Recommendation Dietitian Recommendations/Changes regular diet; ensure plus high protein 120 mL 4x/day for additional calories/protein given signs/symptoms of malnutrition Lab / Micro Data Result Diagrams: 09/12/22 12:20 09/12/22 12:20 Labs: Laboratory Results - last 24 hr 09/14/22 10:40: Ethyl Alcohol < 3.0 Micro: Microbiology 09/12/22 12:00 Nasal Secretion SARS-CoV-2 Antigen (Rapid) - Final Physical Exam Narrative GENERAL: In no apparent distress HEENT: Atraumatic; normocephalic EYES; Anicteric, Normal Conjunctiva NECK; supple, normal thyroid, RESPIRATORY: Diminished to auscultation CARDIOVASCULAR: Regular S1 S2, GI: soft, normoactive bowel sounds, : No Renal angle tenderness; EXTREMITIES: No edema, no clubbing, MUSCULOSKELETAL: no muscle wasting NEURO: Awake; no lateralizing signs. SKIN: No Rash PSYCH; Flat affect Assessment & Plan Assessment/Plan (1) ETOH abuse: PLAN: Plan Patient is a 67-year-old gentleman with history of chronic alcohol dependence admitted with acute alcohol intoxication with severe depression at risk for alcohol withdrawal 1. Acute alcohol intoxication with significant risk for alcohol withdrawal ? Patient has been admitted to a monitored bed managed with phenobarb taper for alcohol withdrawal in addition to adjuvant treatment. 09/14/2022. Has tolerated the phenobarb taper well so far 09/15/2022 patient seen remains quite lethargic. Awaiting transfer to [place] for inpatient detox 2. Severe depression with suicidal ideation ? Plan is for patient to be referred to psych once medically stable 3. Chronic alcohol dependence ? Counseled on cessation 4. Previous history of DVT ? Patient is on apixaban did continue 5. COPD ? Currently not in exacerbation aerosol treatments as needed 6. Tobacco dependence - Counseled on cessation, offered nicotine patch for tobacco cravings. 7. Severe, chronic malnutrition ? Related to inadequate protein/calorie intake in context of alcohol abuse as evidenced by estimated PO intake meeting <75% of estimated energy needs > 3 months; unintentional wt loss of 25.8#/11% x 4 months.? Regular diet; ensure plus high protein 120 mL 4x/day for additional calories/protein given signs/symptoms of malnutrition Charges/Coding Visit Charges Inpatient E&M: 84751 Subs Hosp L2
[2022-09-15] MEDS: guaiFENesin 1,200 MG Tablet 1200 MG PO ×2 (08:44→20:39)
[2022-09-15] MEDS: Venlafaxine HCl 75 MG Tablet 37.5 MG PO (08:44)
[2022-09-15] MEDS: Thiamine Hydrochloride 100 MG Tablet PO (08:44)
[2022-09-15] MEDS: APIXABAN 5 MG TABLET PO ×2 (08:44→20:38)
[2022-09-15] MEDS: Docusate Sodium 100 MG Capsule PO (08:44)
[2022-09-15] MEDS: Folic Acid 1 MG Tablet PO (08:44)
[2022-09-15] MEDS: Ipratropium 0.5 MG/2.5 ML SOLUTION INHALATION ×2 (09:08→19:38)
--- NOTE | 2022-09-15 10:28 | CASEMGMT ---
Addendum entered by Bernarda Foote 09/15/22 12:34: Social Work SW received Consent for Treatment form from [facility] with request that 2 RNs witness pt consent. Form given to pt's bedside RN. Per RN pt agreeable to sign form and SW faxed back to [facility]. SW received call from Dayan at [facility] and they are able to accept pt today. Physician updated. Nurse to Nurse phone: [phone] CAROLINE Silva Addendum entered by Bernarda Foote 09/15/22 10:42: Social Work Return call from Veronica at [facility] and [facility] is requesting updated vitals and med list. Information faxed to [facility]. Will await determination on acceptance. CAROLINE Silva Original Note: Social Work SW placed call to Veronica at [facility] and inquired about placement. Veronica states referral has been made to [facility] and she spoke to them and pt is currently on the wait list as there is no bed. CHRISTOPHER requested Veronica clarify if pt has been officially accepted at [facility] and what the anticipated wait is. CHRISTOPHER inquired if a new referral would be indicated if wait list is long. Veronica to contact [facility] with these questions and call this CHRISTOPHER back. CAROLINE Silva
[2022-09-15] MEDS: Loperamide 2 MG Capsule PO (11:48)
[2022-09-15] MEDS: Menthol/Lanolin/Calamine/Znox 113 GM Tube 1 APPLIC TOPICAL (11:48)
--- NOTE | 2022-09-15 12:35 | PCM.DC.SUM ---
Providers Date of Admission: 09/13/22 Date of Discharge: 09/15/22 Primary Care Physician: Dr. Jacklyn Rinaldi MD Reason For Visit: ALCOHOL WITHDRAWAL Diagnosis Discharge Diagnosis (1) ETOH abuse: Status: Acute Code(s): F10.10 - Alcohol abuse, uncomplicated Plan Patient is a 67-year-old gentleman with history of chronic alcohol dependence admitted with acute alcohol intoxication with severe depression at risk for alcohol withdrawal 1. Acute alcohol intoxication with significant risk for alcohol withdrawal ? Patient has been admitted to a monitored bed managed with phenobarb taper for alcohol withdrawal in addition to adjuvant treatment. 09/14/2022. Has tolerated the phenobarb taper well so far 09/15/2022 patient seen remains quite lethargic. Awaiting transfer to [place] for inpatient detox ? 09/26/2022 patient was sent to [place] management of his dual diagnosis (suicidal ideation as well as alcohol withdrawal) 2. Severe depression with suicidal ideation ? Plan is for patient to be referred to psych once medically stable 3. Chronic alcohol dependence ? Counseled on cessation 4. Previous history of DVT ? Patient is on apixaban did continue 5. COPD ? Currently not in exacerbation aerosol treatments as needed 6. Tobacco dependence - Counseled on cessation, offered nicotine patch for tobacco cravings. 7. Severe, chronic malnutrition ? Related to inadequate protein/calorie intake in context of alcohol abuse as evidenced by estimated PO intake meeting <75% of estimated energy needs > 3 months; unintentional wt loss of 25.8#/11% x 4 months.? Regular diet; ensure plus high protein 120 mL 4x/day for additional calories/protein given signs/symptoms of malnutrition Medications at Discharge Home Medications apixaban 5 mg tablet (Eliquis) 5 mg PO BID blood thinner 03/17/15 guaifenesin 600 mg tablet, extended release 12 hr (Mucus Relief ER) 1,200 mg PO BID copd 03/17/15 tiotropium bromide 18 mcg capsule with inhalation device (Spiriva with HandiHaler) 1 puff inhalation DAILY sob 03/17/15 albuterol sulfate 90 mcg/actuation aerosol inhaler 2 inh inhalation Q4H PRN PRN sob 05/16/22 docusate sodium 100 mg capsule (Colace) 100 mg PO BID 7 days #14 caps 09/01/22 venlafaxine 37.5 mg tablet 37.5 mg PO DAILY 09/12/22 Hospital Course Summary of Care Provided Minutes Spent on Discharge: 35 Physical Exam Narrative GENERAL: In no apparent distress HEENT: Atraumatic; normocephalic EYES; Anicteric, Normal Conjunctiva NECK; supple, normal thyroid, RESPIRATORY: Diminished to auscultation CARDIOVASCULAR: Regular S1 S2, GI: soft, normoactive bowel sounds, : No Renal angle tenderness; EXTREMITIES: No edema, no clubbing, MUSCULOSKELETAL: no muscle wasting NEURO: Awake; no lateralizing signs. SKIN: No Rash PSYCH; Flat affect Medical Records Data Medical Nutrition Assessment Dietitian: Malnutrition Criteria Met Start: 09/13/22 14:21 Freq: Status: Active Protocol: Document 09/13/22 14:21 (Rec: 09/13/22 14:22 [id number]) Nutrition Malnutrition Evidence of Malnutrition Exists Yes Malnutrition (severe): Chronic Evidenced By Suboptimal Energy Intake ( Severe),Weight Loss (Severe) Clinical Problem Chronic Disease or Condition Related Malnutrition Etiology severe, chronic malnutrition related to inadequate protein/ calorie intake in context of alcohol abuse Signs/Symptoms as evidenced by estimated PO intake meeting <75% of estimated energy needs > 3 months; unintentional wt loss of 25.8#/11% x 4 months Status Active Problem Recommendation Dietitian Recommendations/Changes regular diet; ensure plus high protein 120 mL 4x/day for additional calories/protein given signs/symptoms of malnutrition Weight / BMI Weight Weight: 97.976 kg Body Mass Index (BMI) 27.0 ABG / Lab / Microbiology Data Result Diagrams: 09/12/22 12:20 09/12/22 12:20 Microbiology: Microbiology 09/12/22 12:00 Nasal Secretion SARS-CoV-2 Antigen (Rapid) - Final Meaningful Use Info Meaningful Use Diagnoses (Choose all that apply): None applicable Discharge Plan Admission Admit Date/Time: 09/13/22 09:33 Attending Provider: Roni Brooke Primary Care Provider: Jacklyn Rinaldi Instructions Patient Instructions: ED COPD Flare, ED Alcohol Intoxication, ED Viral Syndrome (Adult) Discharge Orders/Prescriptions Prescriptions: Continued Spiriva with HandiHaler 1 PUFF inhaler 1 puff inhalation DAILY Eliquis 5 MG tablet 5 mg PO BID guaifenesin [Mucus Relief ER] 600 MG tablet 1,200 mg PO BID albuterol sulfate 90 mcg/actuation HFA aerosol inhaler 2 inh INHALATION Q4H PRN PRN (Reason: sob) Label Comments: INHALE 2 PUFFS INSTRUCTED EVERY 4 HOURS NEEDED FOR WHEEZING/SHORTNESS OF BREATH. docusate sodium [Colace] 100 mg capsule 100 mg PO BID 7 Days Qty: 14 0RF venlafaxine 37.5 mg tablet 37.5 mg PO DAILY Referrals / Follow Up: Jacklyn Rinaldi MD [Primary Care Provider] - 1 Week [facility] [Non-Staff] - As Needed Disposition Disposition (needs filled in before D/C Order can be placed): Inpatient Rehab Unit/Facility Charges/Coding Visit Charges Inpatient E&M: 31410 Disch Hosp
--- NOTE | 2022-09-15 15:30 | NURSING ---
talked with Tonya from Crisis. updated on awaiting test result prior to transfer to [place]. Primary RN Raul updated on request to call [facility] when have test results/ETA. [phone]
== END 2022-09-15 23:22 | DRG 896 ==
LOC: ED 14:49 → MS3 09-13 09:55
PROVIDERS: Emergency Medicine; Admitting Provider Internal Medicine; Emergency Provider Emergency Medicine; PCP Family Medicine; Visit Provider Internal Medicine
DX: F10.239 Alcohol dependence with withdrawal, unspecified (principal); E43 Unspecified severe protein-calorie malnutrition; R45.851 Suicidal ideations; J44.9 Chronic obstructive pulmonary disease, unspecified; F10.229 Alcohol dependence with intoxication, unspecified; F17.210 Nicotine dependence, cigarettes, uncomplicated; F32.A Depression, unspecified; R63.4 Abnormal weight loss; Y90.6 Blood alcohol level of 120-199 mg/100 ml; Z68.27 Body mass index [BMI] 27.0-27.9, adult; Z79.01 Long term (current) use of anticoagulants; Z79.899 Other long term (current) drug therapy; Z86.718 Personal history of other venous thrombosis and embolism
CPT/HCPCS: 36415; 71045; 80048; 80307; 82077; 83880; 85025; 87493; 87811; 93005; 94640; 97802; 99251; 99285; 99406; J7120; A4216; G0463

== ENCOUNTER 2022-12-08 12:51 | Inpatient (IN) | payer MEDICARE, BC, SELFPAY ==
[2022-12-08] VITALS (11 sets, daily range): BP systolic 128–144; BP diastolic 71–95; PULSE 89–114; RESP 12–24; TEMP 36.2–37.2; O2SAT 90–96; BMI 28.7; BMI 27.6
--- NOTE | 2022-12-08 13:36 | EKG12_ITS ---
Test Reason : Blood Pressure : / mmHG Vent. Rate : 078 BPM Atrial Rate : 078 BPM P-R Int : 170 ms QRS Dur : 118 ms QT Int : 370 ms P-R-T Axes : 081 -58 062 degrees QTc Int : 421 ms Normal sinus rhythm Left anterior fascicular block Minimal voltage criteria for LVH, may be normal variant ( R in aVL ) Abnormal ECG Confirmed by PHYLLIS MUÑOZ, EMILY ([id number]), science editor ABRAHAM CHAUHAN ([id number]) on 12/11/2022 9:20:37 AM Referred By: Confirmed By:EMILY FERGUSON MD
--- NOTE | 2022-12-08 13:37 | EDS_ITS ---
HPI History of Present Illness Chief Complaint: Shortness of Breath Detail of Chief Complaint: COPD flare. Also requesting detox for alcohol abuse. Informant: patient and family Onset/Context/Timing Onset: Days and Weeks Timing: Continuous Quality: Positive for Dyspnea on exertion and Wheezing Current Severity: Mild Maximum Severity: Mild Worsened by: Exertion and Coughing Relieved by: Rest and Oxygen Associated Symptoms cough and white sputum; Negative for fever or sore throat Chest Pain: Positive for None Narrative Narrative: 67-year-old male history of COPD prior DVT and was detox around August or September. Patient has 2 complaints 1 is shortness of breath thinks he is having a COPD flare. Second is requesting detox for recurrent alcohol abuse. States has been short of breath last several days to weeks. Cough of white phlegm. No significant mopped assist. Chest pain with coughing. Denies any leg pain or swelling. Also states has been drinking heavily three quarters of a bottle of Prakash Vera a day. PE Risk Factors: Positive for Prior DVT or PE; Negative for Cancer, OCP + Smoking + > 35, Recent immobilization, Recent surgery or Recent travel Prior similar symptoms: Yes Recent Illness/Hospitalization: Yes [facility] Medical History Alcohol abuse Alcohol use disorder COPD (chronic obstructive pulmonary disease) Depression ETOH abuse History of DVT (deep vein thrombosis) Substance induced mood disorder Tobacco abuse Home Medications guaifenesin 600 mg tablet, extended release 12 hr (Mucus Relief ER) 1,200 mg PO BID copd 03/17/15 [History Last Taken 05/15/22] tiotropium bromide 18 mcg capsule with inhalation device (Spiriva with HandiHaler) 1 puff inhalation DAILY sob 03/17/15 [History Last Taken 05/15/22] albuterol sulfate 90 mcg/actuation aerosol inhaler 2 inh inhalation Q4H PRN PRN sob 05/16/22 [History Last Taken Unknown] apixaban 5 mg tablet (Eliquis) 5 mg PO DAILY blood thinner 09/21/22 [History L ast Taken Unknown] cholecalciferol (vitamin D3) 50 mcg (2,000 unit) tablet (Vitamin D3) 2,000 unit PO DAILY 09/21/22 [History Last Taken Unknown] finasteride 5 mg tablet 5 mg PO DAILY 09/21/22 [History Last Taken Unknown] fluticasone 250 mcg-salmeterol 50 mcg/dose blistr powdr for inhalation (Wixela Inhub) 1 inh inhalation BID 09/21/22 [History Last Taken Unknown] lorazepam 0.5 mg tablet 0.5 mg PO DAILY PRN 09/21/22 [History Last Taken Unknown] tamsulosin 0.4 mg capsule 0.4 mg PO DAILY 09/21/22 [History Last Taken Unknown] thiamine mononitrate (vit B1) 100 mg tablet (Vitamin B-1 (mononitrate)) 100 mg PO DAILY 09/21/22 [History Last Taken Unknown] naltrexone 50 mg tablet 50 mg PO DAILY #30 tabs 11/02/22 [Rx Last Taken Unknown] mirtazapine 30 mg tablet See Rx Instructions .Route .COMPLEX #30 tabs 11/27/22 [Rx Last Taken Unknown] Allergy/AdvReac Type Severity Reaction Status Date / Time POLYMER Allergy Intermediate Rash Uncoded 12/08/22 12:52 Family History Father Heart disease Mother Heart disease Social History Smoking Status: Current every day smoker tobacco type: cigarettes alcohol intake: former details: 10 days ago substance use type: does not use ROS ROS ED ROS Narrative Shortness of breath. Cough. Alcohol abuse. Review of Systems ROS Unobtainable: Denies due to encephalopathy Constitutional Constitutional ED: Denies chills or fever(s) Eyes Eyes: Denies blurry vision ENT ENT ED: Denies ear pain Cardiovascular Cardiovascular: Denies chest pain or palpitations Respiratory/Chest Respiratory/Chest: Reports cough and dyspnea Gastrointestinal Gastrointestinal: Denies abdominal pain, constipation, diarrhea, melena, nausea or vomiting Genitourinary Genitourinary ED: Denies dysuria Musculoskeletal Musculoskeletal: Denies arthralgias Integumentary Denies abscess Neurologic Neurologic: Denies headache(s) Psychiatric Psychiatric: Denies anxiety Endocrine Endocrinology: Denies cold intolerance Hematologic/Lymphatic Hematologic/Lymphatic: Denies easy bleeding Allergic/Immunologic Allergic/Immunologic ED: Denies mouth swelling or tongue swelling EXAM Physical Exam Narrative Exam Narrative: 62-year-old male vital signs stable afebrile. Pulse ox 91% on his normal 3 L of oxygen. No hypoxia. H EENT exam unremarkable. Moist Riis members. Neck nontender no JVD. No lymphadenopathy. Lungs coarse breath sounds. Few scattered wheezes. No rales. No rhonchi. Equal symmetrical. Heart regular rhythm rate about 95 no murmur. Chest were nontender. Abdomen soft nontender. He does have a chronic umbilical hernia. Nontender. There is no abdominal distention or obstruction. No peritoneal signs. Moving all 4 extremities. Neurologically is awake and alert with no focal motor deficits. Back nontender. No injuries. Const Vital Signs: 12/08/22 12:52 12/08/22 13:16 12/08/22 13:44 Temperature 99 F Temperature Source Temporal Pulse Rate 98 Respiratory Rate 18 Respiratory Effort Short of Breath Respiratory Depth Normal Respiratory Pattern Normal Blood Pressure 132/75 H Blood Pressure Mean 94 Pulse Ox 91 96 Oxygen Delivery Method Nasal Cannula Nasal Cannula Nasal Cannula Oxygen Flow Rate (L/min) 3 3 3 Fraction of Inspired Oxygen (FIO2) 91 12/08/22 14:19 12/08/22 14:19 12/08/22 14:19 Temperature Temperature Source Pulse Rate 89 Respiratory Rate 18 18 Respiratory Effort Short of Breath Respiratory Depth Respiratory Pattern Blood Pressure Blood Pressure Mean Pulse Ox 94 94 Oxygen Delivery Method Nasal Cannula Nasal Cannula Oxygen Flow Rate (L/min) 2 2 Fraction of Inspired Oxygen (FIO2) 12/08/22 14:34 Temperature Temperature Source Pulse Rate 96 Respiratory Rate 12 Respiratory Effort Respiratory Depth Respiratory Pattern Blood Pressure Blood Pressure Mean Pulse Ox 94 Oxygen Delivery Method Nasal Cannula Oxygen Flow Rate (L/min) 2 Fraction of Inspired Oxygen (FIO2) Positive well nourished and well developed; Negative for obese, cachectic, contractures or unkempt General Appearance ED: well developed and NAD; Negative for unkempt, cachectic, contractures or pallor Nutritional Appearance: Negative for cachectic or obese HEENT Reports moist mucous membranes atraumatic; Negative for trauma Eyes PERRL and EOMs intact bilaterally General Eye ED: Negative for pale conjunctiva or scleral icterus Neck no lymphadenopathy, supple, no meningeal signs and no JVD General: Negative for tenderness Lymph Lymphatic: Negative for other Chest Wall Chest: Negative for other Resp No normal respiratory effort and No clear to auscultation bilaterally Resp Narrative: Coarse breath sounds bilaterally. Few scattered wheezes. Auscultation: wheezes; Negative for rales Cardio regular rate, regular rhythm, S1 normal heart sound, S2 normal heart sound and no murmurs Rate: Negative for bradycardia or tachycardic Rhythm: Negative for abnormal rhythm GI non-tender, non-distended and no masses Inspection: Negative for other Auscultation: normoactive bowel sounds Palpation: soft; Negative for tender or guarding Back/Spine no CVA tenderness and normal to inspection General Back: Negative for CVA tenderness or tenderness Extremity normal to inspection General Extremety ED: Negative for edema or tenderness General Extremity: Negative for edema Neuro oriented x3 and CN's II-XII intact bilaterally Sensorium / Orientation: alert, oriented to person, oriented to place and oriented to time; Negative for orientation impaired, confused, lethargic or stuporous Speech: speech normal Motor Exam: strength 5/5 throughout Psych mental status grossly normal Appearance: Negative for unkempt Attitude: No agitated Mood & Affect: Negative for depressed or anxious Skin no wounds and skin turgor normal General Skin Exam: Negative for jaundice or pallor Lesions: no lesions Rashes: no rashes Trauma: Negative for abrasion or laceration MDM MDM MDM Narrative Medical decision making narrative: 67-year-old male with what appears to be a COPD exacerbation rule out pneumonia, effusion or cardiac etiology. Will undergo cardiac work-up. He is also requesting detox for alcohol abuse. Alcohol level be obtained. He will also be treated with Solu-Medrol IV and DuoNeb aerosol for his COPD. Repeat exam at 3:30 PM unchanged patient doing well. I went over his test results with him. I did review his old records and his labs are consistent with his baseline. He does have a thrombocytopenia. I have the hospitalist on page for admission for detox. Lab Data Attestation: I reviewed the patient's lab results. Lab results narrative: CBC shows a white count 3.9. H&H 14 and 45. Platelets are low 75,000. Electrolytes show a gap of 7 normal BUN of 8 creatinine 0.68. Glucose 110. Troponin is only 29. He is acutely intoxicated with alcohol level of 298. Labs: Laboratory Results - last 24 hr 12/08/22 12/08/22 12/08/22 13:30 13:30 13:30 WBC 3.9 L RBC 4.34 L Hgb 14.9 Hct 45.5 MCV 104.8 H MCH 34.3 H MCHC 32.7 RDW Std Deviation 53.9 H RDW Coeff of Tyree 13.8 Plt Count 75 L MPV 9.9 Immature Gran % (Auto) 0.500 Neut % (Auto) 62.1 Lymph % (Auto) 25.5 [place] % (Auto) 11.1 H Eos % (Auto) 0.5 Baso % (Auto) 0.3 Absolute Neuts (auto) 2.4 Absolute Lymphs (auto) 0.99 Nucleated RBC % 0 Platelet Estimate MOD DEC Macrocytosis 1+ Sodium 141 Potassium 3.9 Chloride 100 Carbon Dioxide 34.0 H Anion Gap 7 BUN 8 Creatinine 0.68 L Estim Creat Clear Calc 129.44 Est GFR (MDRD) Af Amer 151 Est GFR (MDRD) Non-Af 125 BUN/Creatinine Ratio 11.8 Glucose 110 H Calcium 8.7 Troponin I High Sens 29 Ethyl Alcohol 298.0 Radiography Chest X-Ray - ED: 1 View, Read by ED Physician, Read by Radiologist, Heart, Lungs, Mediastinum, Bony Structures, No Acute Disease and Chronic Changes Diagnostic Testing: Clinical Impression(s) from Imaging Studies Chest X-Ray 12/08/22 14:00 IMPRESSION: Hyperinflation. The lungs are clear. Electronically Signed: Steve Sanchez MD at 14:55 EST , Chest x-ray x-ray, portable, single view interpreted by myself and radiologist shows no acute process. Chronic changes. No infiltrate. Rhythm Strip Rhythm Strip: Sinus Rhythm Rate: 78 Ectopy: None EKG Initial EKG: Attestation: I personally reviewed and interpreted this EKG as follows: Interpretation: Sinus Rhythm and No Acute Injury Pattern Comments: Normal sinus rhythm rate of 78 no acute signs of NM or ischemia. Left anterior fascicular block. Discharge Plan Triage Chief Complaint: Shortness of Breath ED Provider: Solitario Crump Dx/Rx/DC Orders Clinical Impression: ETOH abuse Prescriptions: No Action lorazepam 0.5 mg tablet 0.5 mg PO DAILY PRN finasteride 5 mg tablet 5 mg PO DAILY tamsulosin 0.4 mg capsule 0.4 mg PO DAILY Label Comments: TAKE 1 CAPSULE BY MOUTH ONCE DAILY. AT BEDTIME thiamine mononitrate (vit B1) [Vitamin B-1 (mononitrate)] 100 mg tablet 100 mg PO DAILY Label Comments: TAKE 1 TABLET BY MOUTH EVERY DAY IN THE MORNING cholecalciferol (vitamin D3) [Vitamin D3] 50 mcg (2,000 unit) tablet 2,000 unit PO DAILY Label Comments: TAKE 1 TABLET BY MOUTH EVERY DAY fluticasone propion-salmeterol [Wixela Inhub] 250-50 mcg/dose blister with device 1 inh inhalation BID Label Comments: INHALE 1 PUFF INSTRUCTED TWICE DAILY. naltrexone 50 mg tablet 50 mg PO DAILY Qty: 30 1RF Spiriva with HandiHaler 1 PUFF inhaler 1 puff inhalation DAILY guaifenesin [Mucus Relief ER] 600 MG tablet 1,200 mg PO BID Eliquis 5 mg tablet 5 mg PO DAILY albuterol sulfate 90 mcg/actuation HFA aerosol inhaler 2 inh INHALATION Q4H PRN PRN (Reason: sob) Label Comments: INHALE 2 PUFFS INSTRUCTED EVERY 4 HOURS NEEDED FOR WHEEZING/SHORTNESS OF BREATH. mirtazapine 30 mg tablet See Rx Instructions .ROUTE .COMPLEX Qty: 30 2RF Dose Instruction: TAKE 1 TABLET BY MOUTH EVERY DAY Rx Instructions: TAKE 1 TABLET BY MOUTH EVERY DAY Primary Care Provider: Jacklyn Rinaldi Referrals: Jacklyn Rinaldi MD [Primary Care Provider] -
[2022-12-08] MEDS: MethylPREDNISolone 125 MG/2 ML Vial IV (13:41)
[2022-12-08] MEDS: Ipratropium/Albuterol Sulfate 3 ML AMPUL.NEB INHALATION ×2 (13:41→18:58)
[2022-12-08 13:55] LABS: Absolute Lymphocyte Count 0.99 X10^3/uL (0.83-4.51); Absolute Neutrophil Count 2.4 X10^3/uL (2.0-7.7); Basophil# 0.01 X10^3/uL; Basophil% 0.3 % (0-1); Eosinophil# 0.02 X10^3/uL; Eosinophils% 0.5 % (0-5); Hematocrit 45.5 % (40-54); Hemoglobin 14.9 g/dL (13.0-16.5); Lymphocyte # 0.99 X10^3/ul (0.83-4.51); Lymphocyte % 25.5 % (19-41); Mean Corp Hgb Conc 32.7 g/dL (32-36); Mean Corpuscular Hgb 34.3 pg (27.0-32.0); Mean Corpuscular Volume 104.8 fL (80-94); Mean Platelet Vol. 9.9 fl (6.2-12.0); Monocyte# 0.43 X10^3/uL; Monocyte% 11.1 % (0-10); NRBC Flagged by Analyzer 0 % (0-5); Neutrophil # 2.41 X10^3/uL (2.7-7.7); Neutrophil % 62.1 % (47-70); POSITIVE COUNT YES; Platelet Count 75 K/mm3 (150-450); RBC Distribution Width CV 13.8 % (11.6-14.6); RBC Distribution Width SD 53.9 fl (35.1-43.9); Red Blood Count 4.34 M/mm3 (4.6-6.2); White Blood Count 3.9 K/mm3 (4.4-11.0)
--- NOTE | 2022-12-08 14:00 | RAD_ITS ---
STUDY: X-RAY CHEST REASON FOR EXAM: Male, 67 years old. Chest pain TECHNIQUE: Single AP portable view of the chest. COMPARISON: Comparison is made with prior study 09/12/2022. FINDINGS: EKG electrodes are seen. Hyperinflation. The lungs are clear. There is no demonstrated pleural abnormality. Normal size heart. Normal mediastinum and pipo. Normal visualized pulmonary arteries. There is atherosclerotic tortuosity of the aortic arch and descending thoracic aorta. There are diffuse degenerative changes of the visualized thoracic spine. Normal visualized ribs, clavicles, and shoulders. There is no demonstrated abnormality of the visualized soft tissue structures of the upper abdomen. RAD/Chest 1 View (Portable) IMPRESSION: Hyperinflation. The lungs are clear. Electronically Signed: Steve Sanchez MD at 14:55 EST ,
[2022-12-08 14:15] LABS: Anion Gap 7 (5-15); BUN 8 mg/dL (7-18); BUN/Creat Ratio 11.8 RATIO (10-20); Calcium,Total 8.7 mg/dL (8.5-10.1); Chloride 100 mmol/L (98-107); Creatinine, Serum 0.68 mg/dL (0.70-1.30); EST Glomerular Filtration Rate 125 mL/min (>60); Est Glom Filt Rate - Afr Amer 151 mL/min (>60); Estimated Creatinine Clearance 129.44 ml/min; Glucose 110 mg/dL (74-106); Potassium 3.9 mmol/L (3.5-5.1); Sodium Level 141 mmol/L (136-145); Troponin-I HS 29 pg/mL (3.0-78.0)
[2022-12-08 14:17] LABS: Differential Indicated SCAN CRITERIA MET
[2022-12-08] MEDS: LORazepam 1 MG Tablet PO ×2 (14:33→19:42)
--- NOTE | 2022-12-08 14:48 | ED.RN ---
WENT OVER RAMP CONTRACT WITH PATIENT, PT NOT AGREEING TO SIGN AT THIS TIME
[2022-12-08 15:20] LABS: Macrocytosis 1+
[2022-12-08 15:21] LABS: Platelet Estimate MOD DEC (ADEQ)
--- NOTE | 2022-12-08 16:52 | HP.PCM.HOS_ITS ---
HPI - General General Date of Admission: 12/08/22 Date of Service: 12/08/22 Chief Complaint: shortness of breath HPI Narrative LIT JOHNSON, is a 67 M with a past medical history as outlined who presents via the ED on 12/08/2022 with a complaint of shortness of breath. He states he may short of breath for a few days with associated wheezing and a cough which is productive of clear sputum. He does have COPD and claims he has been compliant with his inhalers. He says he has chest pain with coughing. He denies any lower extremity swelling or leg pain. Of note, patient also stated that he had been drinking about 1/5 of Prakash Vera of vodka every day. He actually said he drinks about 2-3 shots every 2-3 hours. He admitted to tremors and shakes and felt like he was going in withdrawal. He has been through withdrawal before and had been on admission admitted in the hospital previously. Review of systems otherwise negative. Vitals at time of review were BP of 131/84, OR of 93, RR of 19 and temp of 97.2F. He was saturating at 93% on 3L of oxygen. He does wear 2L of oxygen at home. CBC showed Hb of 14.9, wbc of 3.9, platelets of 75. Chemistry largely unremarkable. Serum alcohol level was 298. CXR showed hyperinflation with clear lungs. He is being admitted to be managed for acute COPD exacerbation and acute alcohol withdrawal. [facility] Medical History Alcohol abuse Alcohol use disorder COPD (chronic obstructive pulmonary disease) Depression ETOH abuse History of DVT (deep vein thrombosis) Substance induced mood disorder Tobacco abuse Home Medications guaifenesin 600 mg tablet, extended release 12 hr (Mucus Relief ER) 1,200 mg PO BID copd 03/17/15 [History Last Taken 1 Week Ago ~12/01/22] tiotropium bromide 18 mcg capsule with inhalation device (Spiriva with HandiHaler) 1 puff inhalation DAILY sob 03/17/15 [History Last Taken 1 Week Ago ~12/01/22] albuterol sulfate 90 mcg/actuation aerosol inhaler 2 inh inhalation Q4H PRN PRN sob 05/16/22 [History Last Taken 2 Days Ago ~12/06/22] apixaban 5 mg tablet (Eliquis) 5 mg PO DAILY blood thinner 09/21/22 [History Last Taken 1 Day Ago ~12/07/22] fluticasone 250 mcg-salmeterol 50 mcg/dose blistr powdr for inhalation (Corinna Truong) 1 inh inhalation BID 09/21/22 [History Last Taken 1 Week Ago ~12/01/22] lorazepam 0.5 mg tablet 1 mg PO TID PRN Anxiety 09/21/22 [History Last Taken 1 Day Ago ~12/07/22] tamsulosin 0.4 mg capsule 0.4 mg PO DAILY 09/21/22 [History Last Taken 1 Day Ago ~12/07/22] mirtazapine 30 mg tablet 45 mg PO DAILY 12/08/22 [History Last Taken 1 Week Ago ~12/01/22] Allergy/AdvReac Type Severity Reaction Status Date / Time POLYMER Allergy Intermediate Rash Uncoded 12/08/22 12:52 Family History Father Heart disease Mother Heart disease Social History Smoking Status: Current every day smoker tobacco type: cigarettes alcohol intake: former details: 10 days ago substance use type: does not use ROS Constitutional Constitutional: Reports fatigue and malaise; Denies anorexia, chills, fever(s) or weakness Eyes Eyes: Denies change in vision ENT HEENT: Denies dysphagia, headache(s), sinus pressure or sore throat Cardiovascular Cardiovascular: Reports dyspnea on exertion; Denies chest pain, edema, lightheadedness, orthopnea, palpitations, rapid heart rate or syncope Respiratory/Chest Respiratory/Chest: Reports productive cough, shortness of breath at rest, shortness of breath with exertion and wheezing; Denies cough or dyspnea Gastrointestinal Gastrointestinal: Denies abdominal pain, diarrhea, nausea or vomiting Genitourinary Genitourinary: Denies burning urination or dysuria Musculoskeletal Musculoskeletal: Denies arthralgias Neurologic Neurologic: Denies confusion, dizziness, focal weakness, headache(s), numbness, seizure-like activity, seizures or syncope Psychiatric Psychiatric: Denies anxiety or depression Hematologic/Lymphatic Hematologic/Lymphatic: Denies anemia Vital Signs Vital Signs Vital Signs: 12/08/22 12:52 12/08/22 13:16 12/08/22 13:44 Temperature 99 F Temperature Source Temporal Pulse Rate 98 Respiratory Rate 18 Respiratory Effort Short of Breath Respiratory Depth Normal Respiratory Pattern Normal Blood Pressure 132/75 H Blood Pressure Mean 94 Pulse Ox 91 96 Oxygen Delivery Method Nasal Cannula Nasal Cannula Nasal Cannula Oxygen Flow Rate (L/min) 3 3 3 Fraction of Inspired Oxygen (FIO2) 91 12/08/22 14:19 12/08/22 14:19 12/08/22 14:19 Temperature Temperature Source Pulse Rate 89 Respiratory Rate 18 18 Respiratory Effort Short of Breath Respiratory Depth Respiratory Pattern Blood Pressure Blood Pressure Mean Pulse Ox 94 94 Oxygen Delivery Method Nasal Cannula Nasal Cannula Oxygen Flow Rate (L/min) 2 2 Fraction of Inspired Oxygen (FIO2) 12/08/22 14:34 12/08/22 15:39 12/08/22 15:00 Temperature 97.2 F L Temperature Source Temporal Pulse Rate 96 93 Respiratory Rate 12 19 H Respiratory Effort Respiratory Depth Respiratory Pattern Blood Pressure 131/84 H Blood Pressure Mean 99 Pulse Ox 94 93 90 Oxygen Delivery Method Nasal Cannula Nasal Cannula Nasal Cannula Oxygen Flow Rate (L/min) 2 3 2 Fraction of Inspired Oxygen (FIO2) Weight Weight: 230 lb Body Mass Index (BMI) 28.7 Physical Exam Const alert, oriented x3 and no apparent distress HEENT normocephalic, head/scalp atraumatic, hearing grossly normal bilaterally and moist oral mucous membranes Mouth: oral and palatal mucosa normal Eyes PERRL and EOMs intact bilaterally Neck no lymphadenopathy, supple and no JVD Resp Resp Narrative: diminished breath sounds bibasally, no wheezes or crackles. On 3L of oxygen by nasal canula Cardio regular rate, regular rhythm, S1 normal heart sound, S2 normal heart sound and no murmurs GI normal to inspection, nondistended, normoactive bowel sounds, soft to palpation, non-tender and non-distended Extremity normal to inspection, full ROM and no clubbing, cyanosis or edema Neuro oriented x3, CN's II-XII intact bilaterally, moves all extremities and no focal motor deficits Sensorium / Orientation: awake and alert Motor Exam: strength 5/5 throughout Psych affect normal Results Lab / Micro Data Result Diagrams: 12/08/22 13:30 12/08/22 13:30 Labs: Laboratory Results - last 24 hr 12/08/22 13:30: WBC 3.9 L, RBC 4.34 L, Hgb 14.9, Hct 45.5, MCV 104.8 H, MCH 34.3 H, MCHC 32.7, RDW Std Deviation 53.9 H, RDW Coeff of Tyree 13.8, Plt Count 75 L, MPV 9.9, Immature Gran % (Auto) 0.500, Neut % (Auto) 62.1, Lymph % (Auto) 25.5, Lamb % (Auto) 11.1 H, Eos % (Auto) 0.5, Baso % (Auto) 0.3, Absolute Neuts (auto) 2.4, Absolute Lymphs (auto) 0.99, Nucleated RBC % 0, Platelet Estimate MOD DEC, Macrocytosis 1+ 12/08/22 13:30: Sodium 141, Potassium 3.9, Chloride 100, Carbon Dioxide 34.0 H, Anion Gap 7, BUN 8, Creatinine 0.68 L, Estim Creat Clear Calc 129.44, Est GFR (MDRD) Af Amer 151, Est GFR (MDRD) Non-Af 125, BUN/Creatinine Ratio 11.8, Glucos e 110 H, Calcium 8.7, Troponin I High Sens 29 12/08/22 13:30: Ethyl Alcohol 298.0 Rhythm Strip Rhythm Strip: Sinus Rhythm Rate: 78 Ectopy: None Radiology Impression Chest X-Ray 12/08/22 14:00 IMPRESSION: Hyperinflation. The lungs are clear. Electronically Signed: Steve Sanchez MD at 14:55 EST Reading Location ID and State: [id number] / [place] , Service support , Assessment & Plan Assessment/Plan (1) Alcohol withdrawal: (2) COPD exacerbation: PLAN: Plan #Acute COPD exacerbation * Admit to [facility]. * Chest x-ray showed hyperinflation. * Does have a cough productive of increased white sputum. * Started on IV Solu-Medrol 40 mg every 8 hours. * Breathing treatments of bronchodilators. Titrate oxygen to maintain saturation above 90%. * #Acute alcohol withdrawal * Drinks at least 1/5 of vodka or scotch whiskey every day. His last drink was a couple of hours prior to him coming in. * Urine tox positive for barbiturates and benzodiazepines. * Serum alcohol level is 298. * Started on alcohol withdrawal protocol with phenobarbital. Monitor CIWA score. * Adjunctive meds for symptomatic relief. * #History of DVT: On Eliquis #Depression: On Remeron DVT prophylaxis: Already on Eliquis CODE STATUS: Full code * The patient and son counseled extensively about different types of CODE STATUS including full code, DNR CCA and DNR CCA. Patient elects to be full code. Total [id number] time 17 minutes. * Charges/Coding Visit Charges Inpatient E&M: 75308 Init Hosp L3 Procedures Hospitalists Procedures: 12750 Advncd Care Plan 30 Min
[2022-12-08] MEDS: Phenobarbital 32.4 MG Tablet 64.8 MG PO ×2 (18:13→22:22)
[2022-12-08] MEDS: Tamsulosin HCl 0.4 MG Capsule PO (18:57)
[2022-12-08] MEDS: Gabapentin 300 MG Capsule PO (19:17)
[2022-12-08] MEDS: hydrOXYzine PAM 25 MG Capsule 50 MG PO (19:17)
[2022-12-08 20:47] LABS: Magnesium 1.9 mg/dL (1.6-2.6); Phosphorus 3.9 mg/dL (2.5-4.9)
[2022-12-08] MEDS: LORazepam 2 MG/ML Syringe IV (21:06)
[2022-12-08] MEDS: guaiFENesin 1,200 MG Tablet 1200 MG PO (21:06)
[2022-12-09] VITALS (11 sets, daily range): BP systolic 108–138; BP diastolic 59–85; PULSE 80–105; RESP 16–22; TEMP 36.8–37; O2SAT 93–96
[2022-12-09] MEDS: Phenobarbital 32.4 MG Tablet 64.8 MG PO ×6 (01:26→21:46)
[2022-12-09] MEDS: LORazepam 2 MG/ML Syringe IV ×2 (02:51→10:24)
[2022-12-09 06:51] LABS: Absolute Lymphocyte Count 0.28 X10^3/uL (0.83-4.51); Absolute Neutrophil Count 3.2 X10^3/uL (2.0-7.7); Hematocrit 43.4 % (40-54); Hemoglobin 14.7 g/dL (13.0-16.5); Lymphocyte # 0.28 X10^3/ul (0.83-4.51); Lymphocyte % 7.8 % (19-41); Mean Corp Hgb Conc 33.9 g/dL (32-36); Mean Corpuscular Hgb 34.5 pg (27.0-32.0); Mean Corpuscular Volume 101.9 fL (80-94); Mean Platelet Vol. 10.3 fl (6.2-12.0); Monocyte# 0.12 X10^3/uL; Monocyte% 3.3 % (0-10); NRBC Flagged by Analyzer 0 % (0-5); Neutrophil % 88.6 % (47-70); POSITIVE COUNT YES; POSITIVE DIFFERENTIAL YES; Platelet Count 69 K/mm3 (150-450); RBC Distribution Width CV 13.6 % (11.6-14.6); RBC Distribution Width SD 51.4 fl (35.1-43.9); Red Blood Count 4.26 M/mm3 (4.6-6.2); White Blood Count 3.6 K/mm3 (4.4-11.0)
[2022-12-09 06:55] LABS: Differential Indicated SCAN CRITERIA MET
[2022-12-09 07:10] LABS: Differential Comment SCANNED
[2022-12-09] MEDS: Ipratropium/Albuterol Sulfate 3 ML AMPUL.NEB INHALATION ×3 (07:14→19:15)
[2022-12-09 07:20] LABS: Anion Gap 7 (5-15); BUN 14 mg/dL (7-18); BUN/Creat Ratio 24.5 RATIO (10-20); Calcium,Total 8.8 mg/dL (8.5-10.1); Chloride 97 mmol/L (98-107); Creatinine, Serum 0.57 mg/dL (0.70-1.30); EST Glomerular Filtration Rate 152 mL/min (>60); Est Glom Filt Rate - Afr Amer 184 mL/min (>60); Estimated Creatinine Clearance 154.42 ml/min; Glucose 130 mg/dL (74-106); Potassium 3.7 mmol/L (3.5-5.1); Sodium Level 138 mmol/L (136-145)
--- NOTE | 2022-12-09 07:28 | PCM.PN.HOSP ---
Subjective Subjective Patient is a 67-year-old gentleman with history of chronic alcohol dependence admitted with progressive shortness of breath diagnosis COPD exacerbation admitted to regular nursing floor for further management Objective Data Objective Data Vital Signs: Vital Signs Temp Pulse Resp BP Pulse Ox O2 Del Method O2 Flow Rate 98.3 F 88 19 H 128/67 H 96 Nasal Cannula 2 12/09/22 05:38 12/09/22 07:15 12/09/22 07:15 12/09/22 05:38 12/09/22 07:15 12/09/22 07:15 12/09/22 07:15 FiO2 91 12/08/22 13:16 Oxygen Flow Rate (L/min) 2 Oxygen Delivery Method Nasal Cannula Weight: 100.2 kg Body Mass Index (BMI) 27.6 Intake & Output: Intake and Output for Last 24 Hours 12/07/22 12/08/22 12/09/22 23:59 23:59 23:59 Intake Total 800 / 800 Balance 800 / 800 Lab / Micro Data Result Diagrams: 12/09/22 05:28 12/09/22 05:28 Labs: Laboratory Results - last 24 hr 12/08/22 13:30: WBC 3.9 L, RBC 4.34 L, Hgb 14.9, Hct 45.5, MCV 104.8 H, MCH 34.3 H, MCHC 32.7, RDW Std Deviation 53.9 H, RDW Coeff of Tyree 13.8, Plt Count 75 L, MPV 9.9, Immature Gran % (Auto) 0.500, Neut % (Auto) 62.1, Lymph % (Auto) 25.5, [place] % (Auto) 11.1 H, Eos % (Auto) 0.5, Baso % (Auto) 0.3, Absolute Neuts (auto) 2.4, Absolute Lymphs (auto) 0.99, Nucleated RBC % 0, Platelet Estimate MOD DEC, Macrocytosis 1+ 12/08/22 13:30: Sodium 141, Potassium 3.9, Chloride 100, Carbon Dioxide 34.0 H, Anion Gap 7, BUN 8, Creatinine 0.68 L, Estim Creat Clear Calc 129.44, Est GFR (MDRD) Af Amer 151, Est GFR (MDRD) Non-Af 125, BUN/Creatinine Ratio 11.8, Glucose 110 H, Calcium 8.7, Troponin I High Sens 29 12/08/22 13:30: Ethyl Alcohol 298.0 12/08/22 13:30: Phosphorus 3.9, Magnesium 1.9 12/09/22 05:28: WBC 3.6 L, RBC 4.26 L, Hgb 14.7, Hct 43.4, MCV 101.9 H, MCH 34.5 H, MCHC 33.9, RDW Std Deviation 51.4 H, RDW Coeff of Tyree 13.6, Plt Count 69 L, MPV 10.3, Immature Gran % (Auto) 0.300, Neut % (Auto) 88.6 H, Lymph % (Auto) 7.8 L, [place] % (Auto) 3.3, Eos % (Auto) 0.0, Baso % (Auto) 0.0, Absolute Neuts (auto) 3.2, Absolute Lymphs (auto) 0.28 L, Nucleated RBC % 0, Differential Comment SCANNED, Diff Path Review March12/09/22 05:28: Sodium 138, Potassium 3.7, Chloride 97 L, Carbon Dioxide 34.0 H, Anion Gap 7, BUN 14, Creatinine 0.57 L, Estim Creat Clear Calc 154.42, Est GFR (MDRD) Af Amer 184, Est GFR (MDRD) Non-Af 152, BUN/Creatinine Ratio 24.5 H, Glucose 130 H, Calcium 8.8 Radiography Diagnostic Testing: Radiology Impression Chest X-Ray 12/08/22 14:00 IMPRESSION: Hyperinflation. The lungs are clear. Electronically Signed: Steve Sanchez MD at 14:55 EST , Rhythm Strip Rhythm Strip: Sinus Rhythm Rate: 78 Ectopy: None Physical Exam Narrative GENERAL: cooperative HEENT: Atraumatic; normocephalic EYES; Anicteric, Normal Conjunctiva NECK; supple, normal thyroid, RESPIRATORY: Diminished to auscultation with some wheezes CARDIOVASCULAR: Regular S1 S2, GI: soft, normoactive bowel sounds, : No Renal angle tenderness; EXTREMITIES: No edema, no clubbing, MUSCULOSKELETAL: no muscle wasting NEURO: Awake; no lateralizing signs. SKIN: No Rash PSYCH; Flat affect Assessment & Plan Assessment/Plan (1) Alcohol withdrawal: (2) COPD exacerbation: PLAN: Plan Patient is a 67-year-old gentleman with history of chronic alcohol dependence admitted with progressive shortness of breath diagnosis COPD exacerbation admitted to regular nursing floor for further management 1. COPD with acute exacerbation admitted to regular nursing floor managed with systemic steroid bronchodilator treatment as well as antibiotic therapy 2. Chronic alcohol withdrawal ? Patient started on the alcohol withdrawal protocol using phenobarb taper 3. Previous history of VTE ? Patient is on apixaban did continue 4. BPH ? Patient is on tamsulosin did continue 5. Depression with anxiety ? Patient is on Remeron as well as lorazepam as needed did continue 6. DVT prophylaxis - patient on Eliquis Time spent in the patient's overall evaluation,decision-making process, review of diagnostic data, adjustment of management, discussion with other providers, nursing nursing and ancillary staff involved in patient's care documentation, 38 minutes Charges/Coding Visit Charges Inpatient E&M: 97375 Subs Hosp L2
[2022-12-09] MEDS: 0.9% Saline Lock 10 ML Syringe IV ×3 (10:25→21:46)
[2022-12-09] MEDS: Mirtazapine 30 MG Tablet 45 MG PO (10:31)
[2022-12-09] MEDS: Thiamine Hydrochloride 100 MG Tablet PO (10:31)
[2022-12-09] MEDS: guaiFENesin 1,200 MG Tablet 1200 MG PO ×2 (10:31→21:46)
[2022-12-09] MEDS: Folic Acid 1 MG Tablet PO (10:33)
[2022-12-09] MEDS: APIXABAN 5 MG TABLET PO (10:33)
[2022-12-09] MEDS: Gabapentin 300 MG Capsule PO ×2 (10:39→18:26)
--- NOTE | 2022-12-09 10:41 | CASEMGMT ---
SW met with patient. Patient has history of alcohol use. Patient was open to information on [employer]. Patient reports he has worked with [employer] in the past. CHRISTOPHER provided patient with [employer] brochure and [facility] resource list. Plan: Resources provided Graciela PEÑA
[2022-12-09] MEDS: hydrOXYzine PAM 25 MG Capsule 50 MG PO ×2 (14:32→19:56)
--- NOTE | 2022-12-09 15:38 | CASEMGMT ---
RN?CM?MACHINE SIGN WRITER?CM?to room to meet with patient for initial transition planning/care coordination?assessment.?RN?CM?introduced self and role at [facility].? Pt voices understanding and consents to?assessment?at this time.? Pt resting in bed in no distress at this time.? Pt is A/O at this time and answers all questions appropriately.?? Care providers, pharmacy, and demographics verified/updated at this time. PCP: Jacklyn Rinaldi Specialists: BOB Saldana--welding setter and skip pitman. Pt states welding setter is Dr Clark (pt unsure of spelling). He does not remember GI's name. Preferred Pharmacy: [facility] Insurance: [facility] A/B Prescription Benefit:?yes Living Will/HPOA:?Has both LW and HCPOA, who is his , River ANTOINE: , River. 4 children Living Arrangements: Lives w/ in 2-story home w/2 steps to enter. FFSU. States is independent w/ADL's. assists w/med mgmt and she does all home mgt tasks. Transportation:?Pt states drives self and states no transportation concerns at this time.? also drives. DME: States has the following DME:?nebulizer, pulse ox, and O2 thru [employer]. Pt states wears 2 l/m continuously and sometimes increases to 3 l/m. Pt states has concentrator, portable O2 tank, and Inogen, that his can bring in for him to go home on. Pt states no need for further DME at this time.? HHC/SNF: No hx of either. Denies needs. Pt wishes to return home and states has no concerns with going home at time of discharge.? CM?to follow for any increase in home oxygen needs and any further discharge planning/needs.? Pt voices no further concerns/needs at this time.? Advised pt to ask for?CM?if any further questions/concerns/needs arise.? Voices understanding. PLAN:??Home. Follow for any increase in Oxygen needs @ d/c. SW has met w/pt for ETOH use. Yusuf BSN?RN?CM
--- NOTE | 2022-12-09 17:43 | CASEMGMT ---
CHRISTOPHER called Nahomy to ensure that she was aware that patient wants to be in the [facility] program. She had attempted to speak with him today but he was not waking up. Nahomy will come back and see patient tomorrow morning. Graciela PEÑA
--- NOTE | 2022-12-09 18:23 | NURSING ---
CIWA score done as it was time to assess pt. Pt sleeping at this time. No distress.
[2022-12-09] MEDS: Tamsulosin HCl 0.4 MG Capsule PO (18:24)
[2022-12-09] MEDS: LORazepam 1 MG Tablet PO (21:51)
[2022-12-10 02:41] VITALS: BP 103/60; PULSE 70; RESP 18; TEMP 36.4; O2SAT 94
[2022-12-10] MEDS: Gabapentin 300 MG Capsule PO ×2 (02:45→18:02)
[2022-12-10] MEDS: Phenobarbital 32.4 MG Tablet 64.8 MG PO ×6 (02:45→21:19)
[2022-12-10] MEDS: 0.9% Saline Lock 10 ML Syringe IV ×4 (06:00→22:31)
[2022-12-10 07:35] VITALS: O2SAT 95
--- NOTE | 2022-12-10 07:39 | PCM.PN.HOSP ---
Subjective Subjective Patient seen breathing improved. Patient is requesting to be discharged Objective Data Objective Data Vital Signs: Vital Signs Temp Pulse Resp BP Pulse Ox O2 Del Method O2 Flow Rate 97.5 F L 70 18 103/60 95 Nasal Cannula 2 12/10/22 02:41 12/10/22 02:41 12/10/22 02:41 12/10/22 02:41 12/10/22 07:35 12/10/22 07:35 12/10/22 07:35 FiO2 91 12/08/22 13:16 Oxygen Flow Rate (L/min) 2 Oxygen Delivery Method Nasal Cannula Weight: 100.2 kg Body Mass Index (BMI) 27.6 Intake & Output: Intake and Output for Last 24 Hours 12/08/22 12/09/22 12/10/22 23:59 23:59 23:59 Intake Total 1580 / 2080 800 / 800 Balance 1580 / 2080 800 / 800 Lab / Micro Data Result Diagrams: 12/09/22 05:28 12/09/22 05:28 Rhythm Strip Rhythm Strip: Sinus Rhythm Rate: 78 Ectopy: None Physical Exam Narrative GENERAL: cooperative HEENT: Atraumatic; normocephalic EYES; Anicteric, Normal Conjunctiva NECK; supple, normal thyroid, RESPIRATORY: Diminished to auscultation with some wheezes CARDIOVASCULAR: Regular S1 S2, GI: soft, normoactive bowel sounds, : No Renal angle tenderness; EXTREMITIES: No edema, no clubbing, MUSCULOSKELETAL: no muscle wasting NEURO: Awake; no lateralizing signs. SKIN: No Rash PSYCH; Flat affect Assessment & Plan Assessment/Plan (1) Alcohol withdrawal: (2) COPD exacerbation: PLAN: Plan Patient is a 67-year-old gentleman with history of chronic alcohol dependence admitted with progressive shortness of breath diagnosis COPD exacerbation admitted to regular nursing floor for further management 1. COPD with acute exacerbation ? Admitted to regular nursing floor managed with systemic steroid bronchodilator treatment as well as antibiotic therapy ? 12/10/2022. Breathing improved 2. Chronic alcohol withdrawal ? Patient started on the alcohol withdrawal protocol using phenobarb taper ? Counseled on cessation 3. Previous history of VTE ? Patient is on apixaban did continue 4. BPH ? Patient is on tamsulosin did continue 5. Depression with anxiety ? Patient is on Remeron as well as lorazepam as needed did continue 6. DVT prophylaxis - patient on Eliquis Time spent in the patient's overall evaluation,decision-making process, review of diagnostic data, adjustment of management, discussion with other providers, nursing nursing and ancillary staff involved in patient's care documentation, 38 minutes Charges/Coding Visit Charges Inpatient E&M: 62613 Subs Hosp L2
--- NOTE | 2022-12-10 08:57 | DS.PCM_ITS ---
Providers Date of Admission: 12/08/22 Date of Discharge: 12/10/22 Primary Care Physician: Dr. Jacklyn Rinaldi MD Reason For Visit: DETOX Diagnosis Discharge Diagnosis (1) Alcohol withdrawal: Status: Acute Code(s): F10.939 - Alcohol use, unspecified with withdrawal, unspecified (2) COPD exacerbation: Status: Chronic Code(s): J44.1 - Chronic obstructive pulmonary disease with (acute) exacerbation Plan Patient is a 67-year-old gentleman with history of chronic alcohol dependence admitted with progressive shortness of breath diagnosis COPD exacerbation admitted to regular nursing floor for further management 1. COPD with acute exacerbation ? Admitted to regular nursing floor managed with systemic steroid bronchodilator treatment as well as antibiotic therapy ? 12/10/2022. Breathing improved 2. Chronic alcohol withdrawal ? Patient started on the alcohol withdrawal protocol using phenobarb taper ? Counseled on cessation 3. Previous history of VTE ? Patient is on apixaban did continue 4. BPH ? Patient is on tamsulosin did continue 5. Depression with anxiety ? Patient is on Remeron as well as lorazepam as needed did continue 6. DVT prophylaxis - patient on Eliquis Time spent in the patient's overall evaluation,decision-making process, review of diagnostic data, adjustment of management, discussion with other providers, nursing nursing and ancillary staff involved in patient's care documentation, 38 minutes Medications at Discharge Home Medications guaifenesin 600 mg tablet, extended release 12 hr (Mucus Relief ER) 1,200 mg PO BID copd 03/17/15 tiotropium bromide 18 mcg capsule with inhalation device (Spiriva with HandiHa ler) 1 puff inhalation DAILY sob 03/17/15 albuterol sulfate 90 mcg/actuation aerosol inhaler 2 inh inhalation Q4H PRN PRN sob 05/16/22 apixaban 5 mg tablet (Eliquis) 5 mg PO DAILY blood thinner 09/21/22 fluticasone 250 mcg-salmeterol 50 mcg/dose blistr powdr for inhalation (Wixela Inhub) 1 inh inhalation BID 09/21/22 lorazepam 0.5 mg tablet 1 mg PO TID PRN Anxiety 09/21/22 tamsulosin 0.4 mg capsule 0.4 mg PO DAILY 09/21/22 mirtazapine 30 mg tablet 45 mg PO DAILY 12/08/22 doxycycline hyclate 100 mg capsule 100 mg PO BID 7 days #14 caps 12/10/22 prednisone 20 mg tablet 40 mg PO DAILY 5 days #10 tabs 12/10/22 Hospital Course Summary of Care Provided Minutes Spent on Discharge: 38 Physical Exam Narrative GENERAL: cooperative HEENT: Atraumatic; normocephalic EYES; Anicteric, Normal Conjunctiva NECK; supple, normal thyroid, RESPIRATORY: Diminished to auscultation CARDIOVASCULAR: Regular S1 S2, GI: soft, normoactive bowel sounds, : No Renal angle tenderness; EXTREMITIES: No edema, no clubbing, MUSCULOSKELETAL: no muscle wasting NEURO: Awake; no lateralizing signs. SKIN: No Rash PSYCH; Flat affect Weight / BMI Weight Weight: 100.2 kg Body Mass Index (BMI) 27.6 ABG / Lab / Microbiology Data Result Diagrams: 12/09/22 05:28 12/09/22 05:28 D/C Instructions Discharge Diet: No restrictions Discharge Activity: Return to Normal Activity Call your doctor if you observe: Fever of 101 or Higher, Shortness of breath, Fainting spells and Chest pain Meaningful Use Info Meaningful Use Diagnoses (Choose all that apply): None applicable Discharge Plan Admission Admit Date/Time: 12/08/22 17:07 Attending Provider: Roni Brooke Primary Care Provider: Jacklyn Rinaldi Consulting Providers: Mariela Sultana Discharge Orders/Prescriptions Prescriptions: New prednisone 20 mg tablet 40 mg PO DAILY 5 Days Qty: 10 0RF doxycycline hyclate 100 mg capsule 100 mg PO BID 7 Days Qty: 14 0RF Continued lorazepam 0.5 mg tablet 1 mg PO TID PRN (Reason: Anxiety) tamsulosin 0.4 mg capsule 0.4 mg PO DAILY Label Comments: TAKE 1 CAPSULE BY MOUTH ONCE DAILY. AT BEDTIME fluticasone propion-salmeterol [Wixela Inhub] 250-50 mcg/dose blister with device 1 inh inhalation BID Label Comments: INHALE 1 PUFF INSTRUCTED TWICE DAILY. Spiriva with HandiHaler 1 PUFF inhaler 1 puff inhalation DAILY guaifenesin [Mucus Relief ER] 600 MG tablet 1,200 mg PO BID Eliquis 5 mg tablet 5 mg PO DAILY albuterol sulfate 90 mcg/actuation HFA aerosol inhaler 2 inh INHALATION Q4H PRN PRN (Reason: sob) Label Comments: INHALE 2 PUFFS INSTRUCTED EVERY 4 HOURS NEEDED FOR WHEEZING/SHORTNESS OF BREATH. mirtazapine 30 mg tablet 45 mg PO DAILY Rx Instructions: TAKE 1 TABLET BY MOUTH EVERY DAY Referrals / Follow Up: Jacklyn Rinaldi MD [Primary Care Provider] - Within 1 Week Disposition Disposition (needs filled in before D/C Order can be placed): Home, Self Care Charges/Coding Visit Charges Inpatient E&M: 07348 Disch Hosp >30min
[2022-12-10] MEDS: Folic Acid 1 MG Tablet PO (10:55)
[2022-12-10] MEDS: guaiFENesin 1,200 MG Tablet 1200 MG PO ×2 (10:56→21:19)
[2022-12-10] MEDS: APIXABAN 5 MG TABLET PO (10:56)
[2022-12-10] MEDS: Thiamine Hydrochloride 100 MG Tablet PO (10:56)
[2022-12-10] MEDS: Mirtazapine 30 MG Tablet 45 MG PO (10:56)
[2022-12-10 11:07] VITALS: BP 110/57; PULSE 73; RESP 18; TEMP 36.9; O2SAT 99
[2022-12-10] MEDS: LORazepam 1 MG Tablet PO (14:57)
[2022-12-10 14:59] VITALS: BP 110/60; PULSE 84; RESP 18; TEMP 36.6; O2SAT 97
[2022-12-10] MEDS: Tamsulosin HCl 0.4 MG Capsule PO (18:02)
[2022-12-10 19:52] VITALS: BP 128/72; PULSE 88; RESP 18; TEMP 37.2; O2SAT 92
[2022-12-10] MEDS: hydrOXYzine PAM 25 MG Capsule 50 MG PO (20:06)
[2022-12-10 23:18] VITALS: PULSE 91; O2SAT 93
[2022-12-11] VITALS (10 sets, daily range): BP systolic 91–125; BP diastolic 45–69; PULSE 63–90; RESP 18–22; TEMP 36.5–36.9; O2SAT 94–98
[2022-12-11] MEDS: Phenobarbital 32.4 MG Tablet 64.8 MG PO ×2 (01:52→08:08)
[2022-12-11] MEDS: 0.9% Saline Lock 10 ML Syringe IV (06:39)
--- NOTE | 2022-12-11 06:59 | PCM.PN.HOSP ---
Subjective Subjective f/u ACEOPD, alc withdrawal Objective Data Objective Data Vital Signs: Vital Signs Temp Pulse Resp BP Pulse Ox O2 Del Method O2 Flow Rate 98.4 F 63 18 91/45 L 98 Nasal Cannula 2 12/11/22 05:33 12/11/22 05:33 12/11/22 05:33 12/11/22 05:33 12/11/22 05:33 12/11/22 05:33 12/11/22 05:33 FiO2 91 12/08/22 13:16 Oxygen Flow Rate (L/min) 2 Oxygen Delivery Method Nasal Cannula Weight: 100.2 kg Body Mass Index (BMI) 27.6 Intake & Output: Intake and Output for Last 24 Hours 12/09/22 12/10/22 12/11/22 23:59 23:59 23:59 Intake Total 1580 / 2080 1500 / 1500 Balance 1580 / 2080 1500 / 1500 Lab / Micro Data Result Diagrams: 12/09/22 05:28 12/09/22 05:28 Rhythm Strip Rhythm Strip: Sinus Rhythm Rate: 78 Ectopy: None Physical Exam Const alert and no apparent distress Constitutional Narrative: Oriented HEENT normocephalic and head/scalp atraumatic Eyes Eyes Narrative: EOM grossly intact, anicteric Neck supple Resp normal respiratory effort and clear to auscultation bilaterally Cardio regular rate and regular rhythm GI soft to palpation, non-tender and non-distended Extremity Extremity Narrative: No edema appreciated Neuro moves all extremities Neuro Narrative: No overt focal deficits appreciated Psych Psych Narrative: Cooperative Assessment & Plan Assessment/Plan (1) Alcohol withdrawal: (2) COPD exacerbation: PLAN: Plan #AE COPD Change IV Solu-Medrol to prednisone oral, antibiotics, nebs #Chronic alcohol withdrawal Is on phenobarb taper Adjusted Ativan #History of VTE Apixaban #BPH Tamsulosin #DVT ppx eliquis
[2022-12-11] MEDS: APIXABAN 5 MG TABLET PO (08:05)
[2022-12-11] MEDS: Folic Acid 1 MG Tablet PO (08:05)
[2022-12-11] MEDS: Thiamine Hydrochloride 100 MG Tablet PO (08:05)
[2022-12-11] MEDS: guaiFENesin 1,200 MG Tablet 1200 MG PO (08:05)
[2022-12-11] MEDS: Mirtazapine 30 MG Tablet 45 MG PO (08:08)
--- NOTE | 2022-12-11 09:52 | CASEMGMT ---
Addendum entered by Celeste Segovia 12/11/22 14:00: Pt does not require increased oxygen needs. Addendum entered by Celeste Segovia 12/11/22 10:18: Verified with Anat gautam [facility], pt has oxygen at 3L with exertion. Original Note: TC to [facility], spoke with Aliyah, pt does not have oxygen through [facility] or [facility].
[2022-12-11] MEDS: Ipratropium/Albuterol Sulfate 3 ML AMPUL.NEB INHALATION (11:43)
--- NOTE | 2022-12-11 12:25 | PCM.DC.SUM ---
Providers Date of Admission: 12/08/22 Primary Care Physician: Dr. Jacklyn Rinaldi MD Reason For Visit: COPD EXACERBATION / ACUTE ALCOHOL WITHDRAWAL Diagnosis Discharge Diagnosis (1) Alcohol withdrawal: Status: Acute Code(s): F10.939 - Alcohol use, unspecified with withdrawal, unspecified (2) COPD exacerbation: Status: Chronic Code(s): J44.1 - Chronic obstructive pulmonary disease with (acute) exacerbation Plan #AE COPD #Chronic alcohol withdrawal #History of VTE #BPH Medications at Discharge Home Medications guaifenesin 600 mg tablet, extended release 12 hr (Mucus Relief ER) 1,200 mg PO BID copd 03/17/15 tiotropium bromide 18 mcg capsule with inhalation device (Spiriva with HandiHaler) 1 puff inhalation DAILY sob 03/17/15 albuterol sulfate 90 mcg/actuation aerosol inhaler 2 inh inhalation Q4H PRN PRN sob 05/16/22 apixaban 5 mg tablet (Eliquis) 5 mg PO DAILY blood thinner 09/21/22 fluticasone 250 mcg-salmeterol 50 mcg/dose blistr powdr for inhalation (Wixela Inhub) 1 inh inhalation BID 09/21/22 tamsulosin 0.4 mg capsule 0.4 mg PO DAILY 09/21/22 mirtazapine 30 mg tablet 45 mg PO DAILY 12/08/22 doxycycline hyclate 100 mg capsule 100 mg PO BID 7 days #14 caps 12/10/22 prednisone 20 mg tablet 40 mg PO DAILY 5 days #10 tabs 12/10/22 Hospital Course Summary of Care Provided Minutes Spent on Discharge: 20 Hospital Course: 67-year-old male with a history of DVT, COPD, alcohol use disorder presented to [facility] 12/08/2022 with shortness of breath over several days. He also had been drinking about 1/5 of Prakash Vera or vodka every day and felt like he was going into withdrawal. Had been through withdrawal before. Admitted and started on treatment for COPD exacerbation and phenobarb taper. Patient feeling much better 12/11/2022, discussed that he had not quite finished his phenobarb taper and that symptoms could worsen when he went home and he verbalized understanding but said he feels well enough to go home. Offered gabapentin to help with further withdrawal symptoms and he declined. Reports his breathing significantly improved from presentation, does wear oxygen with ambulation at home. Discharged home with the following discharge instructions: *Please take this with you to your next doctors appointment* DISCHARGE INSTRUCTIONS PLEASE READ ? You will be discharged on an antibiotic, doxycycline, you will take twice daily for 7 days ? You will be discharged on 40 mg of prednisone daily for 5 days ? The scripts have been sent to your pharmacy on file -Please call your primary care provider's office upon discharge to schedule a hospital follow up within 1 week. -For any concerning signs or symptoms please call 911 or proceed to the nearest emergency department Physical Exam Const alert and no apparent distress Constitutional Narrative: Oriented HEENT normocephalic and head/scalp atraumatic Eyes Eyes Narrative: EOM grossly intact, anicteric Neck supple Resp normal respiratory effort Resp Narrative: Does have some scattered wheezes Cardio regular rate and regular rhythm GI non-distended Extremity Extremity Narrative: Moving all extremities Neuro Neuro Narrative: No overt focal deficits appreciated Psych Psych Narrative: Cooperative Weight / BMI Weight Weight: 100.2 kg Body Mass Index (BMI) 27.6 ABG / Lab / Microbiology Data Result Diagrams: 12/09/22 05:28 12/09/22 05:28 D/C Instructions Discharge Diet: No restrictions Call your doctor if you observe: Fever of 101 or Higher, Shortness of breath, Fainting spells and Chest pain Meaningful Use Info Meaningful Use Diagnoses (Choose all that apply): None applicable Discharge Plan Admission Admit Date/Time: 12/08/22 17:07 Primary Reason for Your Visit: Shortness of breath Attending Provider: Kim Hinds Primary Care Provider: Jacklyn Rinaldi Consulting Providers: Mariela Sultana ; Roni Brooke Instructions Patient Instructions: Addiction: Getting Help, Addiction: Your Treatment Options Additional Instructions / Restrictions: DISCHARGE INSTRUCTIONS PLEASE READ ? You will be discharged on an antibiotic, doxycycline, you will take twice daily for 7 days ? You will be discharged on 40 mg of prednisone daily for 5 days ? The scripts have been sent to your pharmacy on file -Please call your primary care provider's office upon discharge to schedule a hospital follow up within 1 week. -For any concerning signs or symptoms please call 911 or proceed to the nearest emergency department Discharge Orders/Prescriptions Prescriptions: New prednisone 20 mg tablet 40 mg PO DAILY 5 Days Qty: 10 0RF doxycycline hyclate 100 mg capsule 100 mg PO BID 7 Days Qty: 14 0RF Continued tamsulosin 0.4 mg capsule 0.4 mg PO DAILY Label Comments: TAKE 1 CAPSULE BY MOUTH ONCE DAILY. AT BEDTIME fluticasone propion-salmeterol [Wixela Inhub] 250-50 mcg/dose blister with device 1 inh inhalation BID Label Comments: INHALE 1 PUFF INSTRUCTED TWICE DAILY. Spiriva with HandiHaler 1 PUFF inhaler 1 puff inhalation DAILY guaifenesin [Mucus Relief ER] 600 MG tablet 1,200 mg PO BID Eliquis 5 mg tablet 5 mg PO DAILY albuterol sulfate 90 mcg/actuation HFA aerosol inhaler 2 inh INHALATION Q4H PRN PRN (Reason: sob) Label Comments: INHALE 2 PUFFS INSTRUCTED EVERY 4 HOURS NEEDED FOR WHEEZING/SHORTNESS OF BREATH. mirtazapine 30 mg tablet 45 mg PO DAILY Rx Instructions: TAKE 1 TABLET BY MOUTH EVERY DAY Discontinued lorazepam 0.5 mg tablet 1 mg PO TID PRN (Reason: Anxiety) Referrals / Follow Up: Jacklyn Rinaldi MD [Primary Care Provider] - Within 1 Week Disposition Disposition (needs filled in before D/C Order can be placed): Home, Self Care Charges/Coding Visit Charges Inpatient E&M: 31917 Disch Hosp
--- NOTE | 2022-12-11 12:36 | DCINST_ITS ---
Discharge Instructions Diet Discharge Diet: No restrictions Dressing / Incision Call your doctor if you observe: Fever of 101 or Higher, Shortness of breath, Fainting spells and Chest pain Follow Up Care Test Results: Test results from this visit will be discussed in further detail at your follow- up appointment, if applicable. Discharge Plan Admission Admit Date/Time: 12/08/22 17:07 Primary Reason for Your Visit: Shortness of breath Attending Provider: Kim Hinds Primary Care Provider: Jacklyn Rinaldi Consulting Providers: Mariela Sultana ; Roni Brooke Instructions Patient Instructions: Addiction: Getting Help, Addiction: Your Treatment Options Additional Instructions / Restrictions: DISCHARGE INSTRUCTIONS PLEASE READ ? You will be discharged on an antibiotic, doxycycline, you will take twice daily for 7 days ? You will be discharged on 40 mg of prednisone daily for 5 days ? The scripts have been sent to your pharmacy on file -Please call your primary care provider's office upon discharge to schedule a hospital follow up within 1 week. -For any concerning signs or symptoms please call 911 or proceed to the nearest emergency department Discharge Orders/Prescriptions Prescriptions: New prednisone 20 mg tablet 40 mg PO DAILY 5 Days Qty: 10 0RF doxycycline hyclate 100 mg capsule 100 mg PO BID 7 Days Qty: 14 0RF Continued tamsulosin 0.4 mg capsule 0.4 mg PO DAILY Label Comments: TAKE 1 CAPSULE BY MOUTH ONCE DAILY. AT BEDTIME fluticasone propion-salmeterol [Wixela Inhub] 250-50 mcg/dose blister with device 1 inh inhalation BID Label Comments: INHALE 1 PUFF INSTRUCTED TWICE DAILY. Spiriva with HandiHaler 1 PUFF inhaler 1 puff inhalation DAILY guaifenesin [Mucus Relief ER] 600 MG tablet 1,200 mg PO BID Eliquis 5 mg tablet 5 mg PO DAILY albuterol sulfate 90 mcg/actuation HFA aerosol inhaler 2 inh INHALATION Q4H PRN PRN (Reason: sob) Label Comments: INHALE 2 PUFFS INSTRUCTED EVERY 4 HOURS NEEDED FOR WHEEZING/SHORTNESS OF BREATH. mirtazapine 30 mg tablet 45 mg PO DAILY Rx Instructions: TAKE 1 TABLET BY MOUTH EVERY DAY Discontinued lorazepam 0.5 mg tablet 1 mg PO TID PRN (Reason: Anxiety) Referrals / Follow Up: Jacklyn Rinaldi MD [Primary Care Provider] - Within 1 Week Disposition Disposition (needs filled in before D/C Order can be placed): Home, Self Care
[2022-12-11 13:45] LABS: Pathologist Review Reviewed
--- NOTE | 2022-12-11 15:05 | ADDICTION ---
This web content writer met with PT to conduct ASAM, MSE, AUDIT assessments and to plan for d/c. PT A+Ox4 and participated actively. All assessments completed, faxed to [facility] and placed in PT's chart. PT plans to f/u with individual counselor at [facility] for outpatient treatment services. PT did not indicate a need for transportation post d/c from [facility].
== END 2022-12-11 14:00 | disposition home or self-care (01) | DRG 191 ==
LOC: ED 15:58 → MS3 17:28
PROVIDERS: Family Medicine; Admitting Provider Student in an Organized Health Care Education/Training Program; Emergency Provider Emergency Medicine; PCP Family Medicine; Visit Provider Internal Medicine
DX: J44.1 Chronic obstructive pulmonary disease with (acute) exacerbation (principal); F10.239 Alcohol dependence with withdrawal, unspecified; J96.11 Chronic respiratory failure with hypoxia; D69.6 Thrombocytopenia, unspecified; F17.210 Nicotine dependence, cigarettes, uncomplicated; F41.9 Anxiety disorder, unspecified; N40.0 Benign prostatic hyperplasia without lower urinary tract symptoms; F32.A Depression, unspecified; Y90.8 Blood alcohol level of 240 mg/100 ml or more; Z99.81 Dependence on supplemental oxygen; Z79.01 Long term (current) use of anticoagulants; Z79.899 Other long term (current) drug therapy; Z86.718 Personal history of other venous thrombosis and embolism
CPT/HCPCS: 36415; 71045; 80048; 82077; 83735; 84100; 84484; 85025; 93005; 94640; 94762; 99252; 99285; A4216; G0463